=== PATIENT | male | born 1955 | race African-American/Black ===

== ENCOUNTER 2016-12-26 09:48 | Inpatient (IN) | payer OTHER ==
--- NOTE | 2016-12-26 15:21 | HP ---
CIWA Score - CIWA Score Nausea/Vomitin-No Nausea/No Vomiting Muscle Tremors: 4-Moderate,w/Arms Extend Anxiety: 3 Agitation: 4-Moderately Restless Paroxysmal Sweats: 3 Orientation: 0-Oriented Tacttile Disturbances: 0-None Auditory Disturbances: 0-None Visual Disturbances: 0-None Headache: 1-Very Mild CIWA-Ar Total Score: 15 Admission ROS [facility] - HPI Chief Complaint: I am here for detox. Allergies/Adverse Reactions: Allergies Allergy/AdvReac Type Severity Reaction Status Date / Time No Known Allergies Allergy Verified 12/26/16 14:49 History of Present Illness: pt is a 61yr old male with a history of alcohol and cocaine dependence seeking detox for treatment. Exam Limitations: No Limitations - Ebola screening Have you traveled outside of the country in the last 21 days: No Have you had contact with anyone from an Ebola affected area: No Have you been sick,other than usual withdrawal symptoms: No Do you have a fever: No - Review of Systems Constitutional: Chills, Diaphoresis, Loss of Appetite, Night Sweats, Changes in sleep, Weight Stable, Unexplained wgt Loss EENT: reports: Blurred Vision (pt has glucoma both eyes.) Respiratory: reports: No Symptoms reported Cardiac: reports: No Symptoms Reported GI: reports: Poor Appetite, Poor Fluid Intake : reports: No Symptoms Reported Musculoskeletal: reports: No Symptoms Reported Integumentary: reports: Flushing, Sweating Neuro: reports: Seizure, Tingling, Tremors Endocrine: reports: Excessive Sweating, Flushing, Intolerance to Cold, Intolerance to Heat Hematology: reports: No Symptoms Reported Psychiatric: reports: Judgement Intact, Mood/Affect Appropiate, Orientated x3, Agitated, Anxious Other Systems: Reviewed and Negative Patient History - Patient Medical History Hx Anemia: No Hx Asthma: No Hx Chronic Obstructive Pulmonary Disease (COPD): No Hx Cardiac Disorders: No Hx Hypertension: Yes Hx Hypercholesterolemia: No Hx Seizures: Yes (alcohol related-last episode was 11 mos. ago) Hx Dementia: No Hx Diabetes: No Hx Gastrointestinal Disorders: Yes (acid reflux) Hx Genitourinary Disorders: No Hx Sexually Transmitted Disorders: No Hx Renal Disease (ESRD): No Hx Thyroid Disease: No Hx Human Immunodeficiency Virus (HIV): No (NEGATIVE HX) Hx Hepatitis C: No Hx Depression: Yes Hx Suicide Attempt: No (denies) Hx Bipolar Disorder: No Hx Schizophrenia: No - Patient Surgical History Past Surgical History: Yes Hx Neurologic Surgery: No Hx Cataract Extraction: No Hx Cardiac Surgery: No Hx Lung Surgery: No Hx Breast Surgery: No Hx Breast Biopsy: No Hx Abdominal Surgery: No Hx Appendectomy: No Hx Cholecystectomy: No Hx Genitourinary Surgery: Yes (R nephrectomy sx for a mass in 2009) Hx Section: No Hx Orthopedic Surgery: No Anesthesia Reaction: No - PPD History Previous Implant?: Yes Documented Results: Positive w/o proof Implanted On Prior R Admission?: No PPD to be Administered?: No - Reproductive History Patient is a Female of Child Bearing Age (11 -55 yrs old): No - Smoking Cessation Smoking history: Current every day smoker Have you smoked in the past 12 months: Yes Aproximately how many cigarettes per day: 20 Hx Chewing Tobacco Use: No Initiated information on smoking cessation: Yes 'Breaking Loose' booklet given: 12/26/16 - Substance & Tx. History Hx Alcohol Use: Yes Hx Substance Use: Yes Substance Use Type: Alcohol, Cocaine Hx Substance Use Treatment: Yes (last detox 2ys ago [facility]) - Substances Abused Cocaine Route: Inhalation Frequency: Daily Amount used: $40-50 Age of first use: 23 Date of Last Use: 12/25/16 Alcohol-vodka/beer Route: Oral Frequency: Daily Amount used: 2 pts./3-6 pks. Age of first use: 18 Date of Last Use: 12/26/16 Family Disease History - Family Disease History Family Disease History: Other: Father (?-), Mother (HTN-) Admission Physical Exam S - Vital Signs Vital Signs: Vital Signs - 24 hr 12/26/16 12:11 Temperature 97.6 F Pulse Rate 88 Respiratory 20 Rate Blood Pressure 144/97 - Physical General Appearance: Yes: Appropriately Dressed, Moderate Distress, Tremorous, Irritable, Sweating, Anxious HEENTM: Yes: Hearing grossly Normal, Normal Voice Respiratory: Yes: Lungs Clear, Normal Breath Sounds, No Respiratory Distress Neck: Yes: No masses,lesions,Nodules Breast: Yes: Within Normal Limits Cardiology: Yes: Regular Rhythm, Regular Rate, S1, S2 Abdominal: Yes: Normal Bowel Sounds, Non Tender, Soft Genitourinary: Yes: Within Normal Limits Back: Yes: Normal Inspection Musculoskeletal: Yes: full range of Motion Extremities: Yes: Normal Capillary Refill, Normal Inspection, Tremors Neurological: Yes: Fully Oriented, Alert, Normal Response Integumentary: Yes: Normal Color Lymphatic: Yes: Within Normal Limits - Diagnostic (1) Cocaine dependence Current Visit: Yes Status: Chronic Qualifiers: Substance use status: uncomplicated Qualified Code(s): F14.20 - Cocaine dependence, uncomplicated; F14.20 - Cocaine dependence, uncomplicated; F14.20 - Cocaine dependence, uncomplicated (2) GERD (gastroesophageal reflux disease) Current Visit: Yes Status: Chronic Qualifiers: Esophagitis presence: without esophagitis Qualified Code(s): K21.9 - Gastro-esophageal reflux disease without esophagitis; K21.9 - Gastro- esophageal reflux disease without esophagitis; K21.9 - Gastro-esophageal reflux disease without esophagitis (3) Glaucoma Current Visit: Yes Status: Chronic Qualifiers: Glaucoma type: unspecified Laterality: bilateral Qualified Code( s): H40.9 - Unspecified glaucoma; H40.9 - Unspecified glaucoma (4) Nicotine dependence Current Visit: Yes Status: Chronic Qualifiers: Nicotine product type: cigarettes Substance use status: uncomplicated Qualified Code(s): F17.210 - Nicotine dependence, cigarettes, uncomplicated; F17.210 - Nicotine dependence, cigarettes, uncomplicated (5) Seizure disorder Current Visit: No Status: Chronic (6) Alcohol dependence with uncomplicated withdrawal Current Visit: Yes Status: Chronic Cleared for Admission [facility] - Detox or Rehab [facility] Level of Care: Medically Managed Detox Regimen/Protocol: Librium [facility] Breath Alcohol Content Breath Alcohol Content: 0.050 Urine Drug Screen - Results Drug Screen Negative: No Urine Drug Screen Results: SCOTT-Cocaine, BZO-Benzodiazepines
[2016-12-26] MEDS ORDERED: MAGNESIUM CITRATE 300 ML BOTTLE PO PRN (15:50)
[2016-12-26] MEDS ORDERED: hydrOXYzine PAMOATE 50 MG CAPSULE (FP) PO PRN (15:50)
[2016-12-26] MEDS ORDERED: ACETAMINOPHEN 325 MG TABLET (FP) PO PRN (15:50)
[2016-12-26] MEDS ORDERED: MAG HYDROX/AL HYDROX/SIMETH 30 ML UNIT-DOSE CUP PO PRN (15:50)
[2016-12-26] MEDS ORDERED: MENTHOL/PHENOL 1 EACH UD MM PRN (15:50)
[2016-12-26] MEDS ORDERED: IBUPROFEN 400 MG TABLET (FP) PO PRN (15:50)
[2016-12-26] MEDS ORDERED: diphenhydrAMINE HCL 50 MG CAPSULE PO PRN (15:50)
[2016-12-26] MEDS ORDERED: guaiFENesin/D-METHORPHAN HB 10 ML UNIT-DOSE CUPS PO PRN (15:50)
[2016-12-26] MEDS ORDERED: LOPERAMIDE HCL 2 MG CAPSULE PO PRN (15:50)
[2016-12-26] MEDS ORDERED: chlordiazePOXIDE HCL 25 MG CAPSULE PO PRN (15:50)
[2016-12-26] MEDS ORDERED: MAGNESIUM HYDROX 2400MG/30ML ORAL SUSPENSION 30 ML CUP PO PRN (15:50)
[2016-12-26] MEDS ORDERED: P-EPHED 60MG/TRIPROLIDI 2.5MG TABLET PO PRN (15:50)
[2016-12-26] MEDS ORDERED: chlordiazePOXIDE HCL 25 MG CAPSULE PO ONE (16:55)
[2016-12-26] MEDS: chlordiazePOXIDE HCL 25 MG CAPSULE PO SCH ×2 (19:08→22:41)
[2016-12-26] MEDS: THIAMINE HCL 100 MG TABLET (FP) PO SCH (22:41)
[2016-12-27 01:57] LABS: URINE APPEARANCE CLEAR; URINE BILIRUBIN NEGATIVE (NEGATIVE); URINE BLOOD NEGATIVE (NEGATIVE); URINE COLOR AMBER; URINE GLUCOSE (UA) NEGATIVE (NEGATIVE); URINE KETONE NEGATIVE (NEGATIVE); URINE NITRITE NEGATIVE (NEGATIVE)
[2016-12-27 02:02] LABS: URINE PROTEIN 2+ (NEGATIVE)
[2016-12-27 02:22] LABS: URINE MUCUS RARE; URINE RBC 1 /hpf (0-3); URINE WBC 4 /hpf (3-5)
[2016-12-27] MEDS: chlordiazePOXIDE HCL 25 MG CAPSULE PO SCH ×4 (06:25→22:42)
--- NOTE | 2016-12-27 09:27 | EKG ---
Test Reason : Blood Pressure : / mmHG Vent. Rate : 084 BPM Atrial Rate : 084 BPM P-R Int : 150 ms QRS Dur : 090 ms QT Int : 392 ms P-R-T Axes : 066 094 062 degrees QTc Int : 463 ms NORMAL SINUS RHYTHM RIGHTWARD AXIS POOR R WAVE PROGRESSION NO PREVIOUS ECGS AVAILABLE Confirmed by WALI ROPER MD ([id number]) on 12/27/2016 9:26:41 AM Referred By: Confirmed By:WALI ROPER MD
[2016-12-27 09:45] LABS: MCH 31.7 pg (25.7-33.7); MCHC 32.5 g/dl (32.0-35.9); MEAN CELL VOLUME 97.5 fl (80-96); MEAN PLT VOLUME 7.2 fl (7.5-11.1); PLATELET COUNT 201 K/MM3 (134-434); WHITE BLOOD COUNT 4.9 K/mm3 (4.0-10.0)
[2016-12-27 09:52] LABS: ALBUMIN 3.1 g/dl (3.4-5.0); ALK PHOS 75 U/L (45-117); ANION GAP 8 (8-16); BILIRUBIN,TOTAL 0.5 mg/dL (0.2-1.0); CALCIUM 8.6 mg/dL (8.5-10.1); CO2 27 mmol/L (21-32); CREATININE 1.1 mg/dL (0.7-1.3); GLUCOSE,RANDOM 145 mg/dL (74-106); SGOT/AST 72 U/L (15-37); SGPT/ALT 57 U/L (12-78); TOT PROT 5.7 g/dl (6.4-8.2)
[2016-12-27] MEDS: NICOTINE 21 MG/24 HOURS TOPICAL PATCH TD SCH (10:23)
[2016-12-27] MEDS: PHENYTOIN NA EXTENDED 100 MG CAPSULE (FP) PO SCH (10:23)
[2016-12-27] MEDS: PRENATAL VITAMINS W/ FOLIC ACID TABLET (FP) PO SCH (10:23)
[2016-12-27 10:45] LABS: URINE LEUK ESTERASE Negative (NEGATIVE)
--- NOTE | 2016-12-27 11:10 | PN ---
[facility] CIWA - CIWA Score Nausea/Vomitin-No Nausea/No Vomiting Muscle Tremors: 4-Moderate,w/Arms Extend Anxiety: 4-Mod. Anxious/Guarded Agitation: 4-Moderately Restless Paroxysmal Sweats: 1-Minimal Palms Moist Orientation: 0-Oriented Tacttile Disturbances: 3-Moderate Itch/Numb/Burn Auditory Disturbances: 0-None Visual Disturbances: 0-None Headache: 0-None Present CIWA-Ar Total Score: 16 S Progress Note (SOAP) Subjective: ANXIETY,SWEATS,CHILLS,FATIGUE,MUSCLE ACHES. Objective: 12/27/16 11:09 Vital Signs Temperature 97.8 F 12/27/16 10: Pulse Rate 95 H 12/27/16 10:13 Respiratory Rate 18 12/27/16 10:13 Blood Pressure 132/90 12/27/16 10: O2 Sat by Pulse Oximetry (%) Laboratory Last Values WBC 4.9 K/mm3 (4.0-10.0) D 12/27/16 07:00 RBC 3.82 M/mm3 (4.00-5.60) L 12/27/16 07:00 Hgb 12.1 GM/dL (11.7-16.9) 12/27/16 07:00 Hct 37.2 % (35.4-49) 12/27/16 07:00 MCV 97.5 fl (80-96) H 12/27/16 07:00 MCH 31.7 pg (25.7-33.7) 12/27/16 07:00 MCHC 32.5 g/dl (32.0-35.9) 12/27/16 07:00 RDW 13.0 % (11.9-15.9) 12/27/16 07:00 Plt Count 201 K/MM3 (134-434) 12/27/16 07:00 MPV 7.2 fl (7.5-11.1) L 12/27/16 07:00 Sodium 143 mmol/L (136-145) 12/27/16 07:00 Potassium 3.6 mmol/L (3.5-5.1) 12/27/16 07:00 Chloride 108 mmol/L (98-107) H 12/27/16 07:00 Carbon Dioxide 27 mmol/L (21-32) 12/27/16 07:00 Anion Gap 8 (8-16) 12/27/16 07:00 BUN 16 mg/dL (7-18) 12/27/16 07:00 Creatinine 1.1 mg/dL (0.7-1.3) 12/27/16 07:00 Creat Clearance w eGFR > 60 (>60) 12/27/16 07:00 Random Glucose 145 mg/dL (74-106) H D 12/27/16 07:00 Calcium 8.6 mg/dL (8.5-10.1) 12/27/16 07:00 Total Bilirubin 0.5 mg/dL (0.2-1.0) D 12/27/16 07:00 AST 72 U/L (15-37) H D 12/27/16 07:00 ALT 57 U/L (12-78) D 12/27/16 07:00 Alkaline Phosphatase 75 U/L (45-117) D 12/27/16 07:00 Total Protein 5.7 g/dl (6.4-8.2) L D 12/27/16 07:00 Albumin 3.1 g/dl (3.4-5.0) L D 12/27/16 07:00 Urine Color [place]or[place] 12/26/16 20:45 Urine Appearance Clear 12/26/16 20:45 Urine pH 5.0 (5.0-8.0) 12/26/16 20:45 Ur Specific [place] 1.025 (1.005-1.025) 12/26/16 20:45 Urine Protein 2+ (NEGATIVE) H 12/26/16 20:45 Urine Glucose (UA) Negative (NEGATIVE) 12/26/16 20:45 Urine Ketones Negative (NEGATIVE) 12/26/16 20:45 Urine Blood Negative (NEGATIVE) 12/26/16 20:45 Urine Nitrite Negative (NEGATIVE) 12/26/16 20:45 Urine Bilirubin Negative (NEGATIVE) 12/26/16 20:45 Urine Urobilinogen 2.0 mg/dL (0.2-1.0) 12/26/16 20:45 Ur Leukocyte Esterase Negative (NEGATIVE) 12/26/16 20:45 Urine RBC 1 /hpf (0-3) 12/26/16 20:45 Urine WBC 4 /hpf (3-5) 12/26/16 20:45 Ur Epithelial Cells Rare /hpf (FEW) 12/26/16 20:45 Urine Mucus Rare 12/26/16 20:45 Assessment: 12/27/16 11:10 WITHDRAWAL SX Plan: CONTINUE DETOX
--- NOTE | 2016-12-27 14:20 | CONSULT ---
[facility] Psychiatric Consult - Data Date of interview: 12/27/16 Admission source: [facility] Identifying data: Readmission to [facility] for this 61 y/o AA male seeking detox treatment on for alcohol and cocaine dependence.Patient is single without children,homeless,unemployed and deprived of financial assistance. Substance Abuse History: Discussed in session.report confirmed. Smoking Cessation. Smoking history: Current every day smoker. Have you smoked in the past 12 months: Yes. Aproximately how many cigarettes per day: 20. Hx Chewing Tobacco Use: No. Initiated information on smoking cessation: Yes. 'Breaking Loose' booklet given: 12/26/16. - Substance & Tx. History. Hx Alcohol Use: Yes. Hx Substance Use: Yes. Substance Use Type: Alcohol, Cocaine. Hx Substance Use Treatment: Yes (last detox 2ys ago [facility]). - Substances Abused. Cocaine. Route: Inhalation. Frequency: Daily. Amount used: $40- 50. Age of first use: 23. Date of Last Use: 12/25/16. Alcohol-vodka/beer. Route: Oral. Frequency: Daily. Amount used: 2 pts./3-6 pks. Age of first use: 18. Date of Last Use: 12/26/16 Medical History: GERD,withdrawal-related seizures in the past,hypertension, glaucoma (both eyes) and a history of right nephrectomy (tumor) in 2016. Psychiatric History: Poor historian.Mr Hernandez does admit to the diagnosis of Bipolar Disorder." I used to be on medications.I stopped a while back." No reported history of hospitalizations.Denies history of suicide attempts. Physical/Sexual Abuse/Trauma History: Denies. Additional Comment: Urine Drug Screen Results: SCOTT-Cocaine, BZO- Benzodiazepines.Noted. Mental Status Exam - Mental Status Exam Alert and Oriented to: Time, Place, Person Cognitive Function: Good Patient Appearance: Well Groomed Mood: Hopeful, Euthymic Affect: Normal Range Patient Behavior: Fatigued, Cooperative Speech Pattern: Clear Voice Loudness: Normal Thought Process: Goal Oriented Thought Disorder: Not Present Hallucinations: Denies Suicidal Ideation: Denies Homicidal Ideation: Denies Insight/Judgement: Poor Sleep: Poorly, Difficulty falling asleep (wants ambien) Appetite: Fair Muscle strength/Tone: Normal Gait/Station: Normal Psychiatric Findings - Problem List (Sandy 1, 2,3) (1) Alcohol dependence with uncomplicated withdrawal Current Visit: Yes Status: Acute (2) Cocaine dependence Current Visit: Yes Status: Acute Qualifiers: Substance use status: uncomplicated Qualified Code(s): F14.20 - Cocaine dependence, uncomplicated; F14.20 - Cocaine dependence, uncomplicated; F14.20 - Cocaine dependence, uncomplicated (3) Nicotine dependence Current Visit: Yes Status: Acute Qualifiers: Nicotine product type: cigarettes Substance use status: in withdrawal Qualified Code(s): F17.213 - Nicotine dependence, cigarettes, with withdrawal; F17.213 - Nicotine dependence, cigarettes, with withdrawal (4) GERD (gastroesophageal reflux disease) Current Visit: Yes Status: Chronic Qualifiers: Esophagitis presence: without esophagitis Qualified Code(s): K21.9 - Gastro-esophageal reflux disease without esophagitis; K21.9 - Gastro- esophageal reflux disease without esophagitis; K21.9 - Gastro-esophageal reflux disease without esophagitis (5) Glaucoma Current Visit: Yes Status: Chronic Qualifiers: Glaucoma type: unspecified Laterality: bilateral Qualified Code( s): H40.9 - Unspecified glaucoma; H40.9 - Unspecified glaucoma (6) H/O unilateral nephrectomy Current Visit: Yes Status: Chronic (7) Insomnia Current Visit: Yes Status: Acute - Initial Treatment Plan Initial Treatment Plan: Psychoeducation.Detoxification.Ambien 5 mg po hs prn.Patient is made aware of potential for parasomnias,drowsiness and falls.he agrees with this careplan.Observation.
[2016-12-27] MEDS ORDERED: ZOLPIDEM TARTRATE 5 MG TABLET PO PRN (18:25)
[2016-12-27] MEDS: THIAMINE HCL 100 MG TABLET (FP) PO SCH (22:42)
[2016-12-28] MEDS: chlordiazePOXIDE HCL 25 MG CAPSULE PO SCH ×2 (06:16→10:22)
[2016-12-28] MEDS: NICOTINE 21 MG/24 HOURS TOPICAL PATCH TD SCH (10:22)
[2016-12-28] MEDS: PHENYTOIN NA EXTENDED 100 MG CAPSULE (FP) PO SCH (10:22)
[2016-12-28] MEDS: PRENATAL VITAMINS W/ FOLIC ACID TABLET (FP) PO SCH (10:22)
[2016-12-28] MEDS ORDERED: ONDANSETRON *ODT* 4 MG TABLET SL PRN (11:38)
[2016-12-28 13:55] VITALS: BP 116/76; PULSE 91; TEMP 97.3
--- NOTE | 2016-12-28 14:46 | DS ---
[facility] Detox Discharge Summary Admission Date: 12/26/16 Discharge Date: 12/28/16 - History Present History: Alcohol Dependence, Cocaine Dependence Additional Comments: DESPITE ENCOURAGEMENT FROM MEDICAL STAFF, PT. DOES NOT WISH TO STAY TO COMPLETE DETOX REGIMEN. RISKS OF LEAVING DETOX UNIT PRIOR TO COMPLETION OF DETOX PROTOCOL DISCUSSED WITH PATIENT. PATIENT ADVISED TO GO IMMEDIATELY TO NEAREST ER SHOULD ANY INTOLERABLE DETOX SYMPTOMS DEVELOP AT ANY TIME. PATIENT ADVISED TO FOLLOW-UP FOR MEDICAL ASSESSMENT / CARE AT [facility] ( WHERE HE HAS RECEIVED MEDICAL TREATMENT IN THE PAST). PATIENT REFUSED OFFER OF DISCHARGE MEDICATIONS WHEN LEAVING UNIT. PATIENT LEFT DETOX UNIT IN STABLE MEDICAL CONDITION. Pertinent Past History: Glaucoma, HTN, Nicotine Dependence, History of seizures, Depression, GERD. - Physical Exam Results Vital Signs: Vital Signs Temperature 97.3 F L 12/28/16 13:54 Pulse Rate 91 H 12/28/16 13:54 Respiratory Rate 20 12/28/16 13:54 Blood Pressure 116/76 12/28/16 13:54 O2 Sat by Pulse Oximetry (%) Pertinent Admission Physical Exam Findings: WITHDRAWAL SYMPTOMS. Laboratory Tests 12/26/16 12/27/16 12/27/16 20:45 07:00 07:00 WBC 4.9 D RBC 3.82 L Hgb 12.1 Hct 37.2 MCV 97.5 H MCH 31.7 MCHC 32.5 RDW 13.0 Plt Count 201 MPV 7.2 L Sodium 143 Potassium 3.6 Chloride 108 H Carbon Dioxide 27 Anion Gap 8 BUN 16 Creatinine 1.1 Creat Clearance w eGFR > 60 Random Glucose 145 H D Calcium 8.6 Total Bilirubin 0.5 D AST 72 H D ALT 57 D Alkaline Phosphatase 75 D Total Protein 5.7 L D Albumin 3.1 L D Urine Color Deloris Urine Appearance Clear Urine pH 5.0 Ur Specific [place] 1.025 Urine Protein 2+ H Urine Glucose (UA) Negative Urine Ketones Negative Urine Blood Negative Urine Nitrite Negative Urine Bilirubin Negative Urine Urobilinogen 2.0 Ur Leukocyte Esterase Negative Urine RBC 1 Urine WBC 4 Ur Epithelial Cells Rare Urine Mucus Rare RPR Titer 12/27/16 07:00 WBC RBC Hgb Hct MCV MCH MCHC RDW Plt Count MPV Sodium Potassium Chloride Carbon Dioxide Anion Gap BUN Creatinine Creat Clearance w eGFR Random Glucose Calcium Total Bilirubin AST ALT Alkaline Phosphatase Total Protein Albumin Urine Color Urine Appearance Urine pH Ur Specific [place] Urine Protein Urine Glucose (UA) Urine Ketones Urine Blood Urine Nitrite Urine Bilirubin Urine Urobilinogen Ur Leukocyte Esterase Urine RBC Urine WBC Ur Epithelial Cells Urine Mucus RPR Titer Nonreactive LABS NOTED. - Treatment Hospital Course: Detoxed Safely - Diagnosis (1) Alcohol dependence with uncomplicated withdrawal Current Visit: Yes Status: Acute (2) Cocaine dependence Current Visit: Yes Status: Acute Qualifiers: Substance use status: uncomplicated Qualified Code(s): F14.20 - Cocaine dependence, uncomplicated; F14.20 - Cocaine dependence, uncomplicated; F14.20 - Cocaine dependence, uncomplicated (3) Nicotine dependence Current Visit: Yes Status: Chronic Qualifiers: Nicotine product type: cigarettes Substance use status: in withdrawal Qualified Code(s): F17.213 - Nicotine dependence, cigarettes, with withdrawal; F17.213 - Nicotine dependence, cigarettes, with withdrawal (4) Glaucoma Current Visit: Yes Status: Chronic Qualifiers: Glaucoma type: unspecified Laterality: bilateral Qualified Code( s): H40.9 - Unspecified glaucoma; H40.9 - Unspecified glaucoma (5) Seizure disorder Current Visit: Yes Status: Chronic (6) GERD (gastroesophageal reflux disease) Current Visit: Yes Status: Chronic Qualifiers: Esophagitis presence: without esophagitis Qualified Code(s): K21.9 - Gastro-esophageal reflux disease without esophagitis; K21.9 - Gastro- esophageal reflux disease without esophagitis; K21.9 - Gastro-esophageal reflux disease without esophagitis - AMA Did Patient Leave Against Medical Advice: Yes (PATIENT DID NOT WISH TO STAY TO COMPLETE DETOX REGIMEN.)
[2016-12-28] MEDS ORDERED: chlordiazePOXIDE 5 MG CAPSULE PO SCH (17:00)
[2016-12-29] MEDS ORDERED: chlordiazePOXIDE HCL 10 MG CAPSULE PO SCH (17:00)
== END 2016-12-28 15:23 | disposition left against medical advice (07) | DRG 770 ==
LOC: YASAS 09:48 → Y3N 16:46
PROVIDERS: ADMIT Internal Medicine; ATTEND Internal Medicine
PROC: HZ2ZZZZ Detoxification Services for Substance Abuse Treatment (ICD-10-PCS; principal; 2016-12-26)
DX: F10.230 Alcohol dependence with withdrawal, uncomplicated (principal); F14.20 Cocaine dependence, uncomplicated; F17.210 Nicotine dependence, cigarettes, uncomplicated; H40.9 Unspecified glaucoma; K21.9 Gastro-esophageal reflux disease without esophagitis; G47.00 Insomnia, unspecified; Z86.69 Personal history of other diseases of the nervous system and sense organs; Z90.5 Acquired absence of kidney
CPT/HCPCS: 36415; 71020-TC; 80053; 81003; 81015; 85027; 86593; 93005; 93010

== ENCOUNTER 2018-10-01 20:45 | Inpatient (IN) | payer OTHER ==
--- NOTE | 2018-10-01 21:52 | HP ---
CIWA Score Nausea/Vomitin Muscle Tremors: 3 Anxiety: 2 Agitation: 3 Paroxysmal Sweats: 1-Minimal Palms Moist Orientation: 1-Uncertain about Date Tacttile Disturbances: 0-None Auditory Disturbances: 0-None Visual Disturbances: 0-None Headache: 1-Very Mild CIWA-Ar Total Score: 14 - Admission Criteria [facility] Guidelines: Admission for Medically Managed Detox: Requires at least one of the followin. CIWA greater than 12 2. Seizures within the past 24 hours 3. Delirium tremens within the past 24 hours 4. Hallucinations within the past 24 hours 5. Acute intervention needed for co occurring medical disorder 6. Acute intervention needed for co occurring psychiatric disorder 7. Severe withdrawal that cannot be handled at a lower level of care (continued vomiting, continued diarrhea, abnormal vital signs) requiring intravenous medication and/or fluids 8. Patient presents the following: CIWA greater than 12 Admission Criteria Met: Admission criteria met Admission ROS [facility] Chief Complaint: cannot relate Allergies/Adverse Reactions: Allergies Allergy/AdvReac Type Severity Reaction Status Date / Time No Known Allergies Allergy Verified 10/01/18 21:20 History of Present Illness: daniel says he has been drinking since his teens and has no significant period of abstience and drinks 2 liters vodka daily consistently last rehab was 2 y ago - Ebola screening Have you traveled outside of the country in the last 21 days: No (N) Have you had contact with anyone from an Ebola affected area: No Do you have a fever: No - Review of Systems Constitutional: No Symptoms Reported EENT: reports: No Symptoms Reported Respiratory: reports: No Symptoms reported Cardiac: reports: No Symptoms Reported GI: reports: Abdominal cramping : reports: No Symptoms Reported Musculoskeletal: reports: No Symptoms Reported Integumentary: reports: No Symptoms Reported Neuro: reports: Headache, Unsteady Gait Endocrine: reports: No Symptoms Reported Hematology: reports: No Symptoms Reported Psychiatric: reports: Disorientated, other (inebriated) Patient History - Patient Medical History Hx Anemia: No Hx Asthma: No Hx Chronic Obstructive Pulmonary Disease (COPD): No Hx Cardiac Disorders: No Hx Hypertension: Yes Hx Hypercholesterolemia: No Hx Seizures: Yes (alcohol related-last episode was 11 mos. ago) Hx Dementia: No Hx Diabetes: No Hx Gastrointestinal Disorders: Yes (acid reflux) Hx Genitourinary Disorders: No Hx Sexually Transmitted Disorders: No Hx Renal Disease (ESRD): No Hx Thyroid Disease: No Hx Human Immunodeficiency Virus (HIV): No (NEGATIVE HX) Hx Hepatitis C: No Hx Depression: Yes Hx Suicide Attempt: No (denies) Hx Bipolar Disorder: No Hx Schizophrenia: No - Patient Surgical History Past Surgical History: Yes Hx Neurologic Surgery: No Hx Cataract Extraction: No Hx Cardiac Surgery: No Hx Lung Surgery: No Hx Breast Surgery: No Hx Breast Biopsy: No Hx Abdominal Surgery: No Hx Appendectomy: No Hx Cholecystectomy: No Hx Genitourinary Surgery: Yes (R nephrectomy sx for a mass in 2009) Hx Section: No Hx Orthopedic Surgery: No Anesthesia Reaction: No - Smoking Cessation Smoking history: Current every day smoker Have you smoked in the past 12 months: Yes Aproximately how many cigarettes per day: 20 Hx Chewing Tobacco Use: No Initiated information on smoking cessation: Yes 'Breaking Loose' booklet given: 10/01/18 - Substances abused Alcohol Substance route: Oral Frequency: Daily Amount used: 3pints of vodka daily Age of first use: 22 Date of last use: 10/01/18 Family Disease History - Family Disease History Family Disease History: Other: Father (?-), Mother (HTN-) Admission Physical Exam [facility] - Vital Signs Vital Signs: Vital Signs - 24 hr 10/01/18 21:38 Pulse Rate 77 Respiratory 20 Rate Blood Pressure 113/74 - Physical General Appearance: Yes: Disheveled, Alcohol on Breath, Thin, Sweating HEENTM: Yes: EOMI, Normocephalic, Other (scleral injection) Respiratory: Yes: Within Normal Limits, Chest Non-Tender, Lungs Clear, Normal Breath Sounds Neck: Yes: Within Normal Limits Breast: Yes: Within Normal Limits Cardiology: Yes: Within Normal Limits, Regular Rhythm, Regular Rate Abdominal: Yes: Within Normal Limits, Normal Bowel Sounds, Non Tender Genitourinary: Yes: Within Normal Limits Back: Yes: Within Normal Limits Musculoskeletal: Yes: Within Normal Limits Extremities: Yes: Normal Inspection Neurological: Yes: Other (inebriated) Integumentary: Yes: Within Normal Limits - Diagnostic (1) Alcohol dependence with uncomplicated withdrawal Current Visit: Yes Status: Acute (2) Cocaine dependence Current Visit: No Status: Acute Qualifiers: (3) Seizure disorder Current Visit: No Status: Chronic Cleared for Admission [facility] - Detox or Rehab [facility] Level of Care: Medically Supervised (admit to detox, hold librium taper for change in ms) Claeared for Rehab Admission: No Breathalyzer - Breathalyzer Breathalyzer: 0.213 Urine Drug Screen - Test Device Lot number: [id number] Expiration date: 07/14/20 - Control Is test valid?: Yes - Results Drug screen NEGATIVE: No Urine drug screen results: SCOTT-Cocaine, BZO-Benzodiazepines Inpatient Rehab Admission - Rehab Decision to Admit Inpatient rehab admission?: No
[2018-10-01] MEDS ORDERED: hydrOXYzine HCL 25 MG TABLET (FP) PO PRN (21:53)
[2018-10-01] MEDS ORDERED: MENTHOL/PHENOL 1 EACH UD MM PRN (21:53)
[2018-10-01] MEDS ORDERED: METHOCARBAMOL 500 MG TABLET PO PRN (21:53)
[2018-10-01] MEDS ORDERED: MAG HYDROX/AL HYDROX/SIMETH 30 ML UNIT-DOSE CUP PO PRN (21:53)
[2018-10-01] MEDS ORDERED: ACETAMINOPHEN 325 MG TABLET (FP) PO PRN (21:53)
[2018-10-01] MEDS ORDERED: BISMUTH SUBSALICYLATE 524 MG/30 ML UD PO PRN (21:53)
[2018-10-01] MEDS ORDERED: MELATONIN 5 MG TABLETS PO PRN (21:53)
[2018-10-01] MEDS ORDERED: MAGNESIUM HYDROX 2400MG/30ML ORAL SUSPENSION 30 ML CUP PO PRN (21:53)
[2018-10-01] MEDS ORDERED: IBUPROFEN 400 MG TABLET (FP) PO PRN (21:53)
[2018-10-01] MEDS ORDERED: MAGNESIUM CITRATE 300 ML BOTTLE PO PRN (21:53)
[2018-10-01 21:57] VITALS: BMI 20.3
[2018-10-01] MEDS: THIAMINE HCL 100 MG TABLET (FP) PO SCH (23:33)
[2018-10-01] MEDS: NICOTINE 14 MG/24 HOURS TOPICAL PATCH TD SCH (23:33)
[2018-10-02] MEDS ORDERED: chlordiazePOXIDE HCL 25 MG CAPSULE PO PRN (05:00)
[2018-10-02] MEDS: chlordiazePOXIDE HCL 25 MG CAPSULE PO SCH ×4 (06:35→22:45)
[2018-10-02] MEDS: NICOTINE 14 MG/24 HOURS TOPICAL PATCH TD SCH (10:10)
[2018-10-02] MEDS: PRENATAL VITAMINS W/ FOLIC ACID TABLET (FP) PO SCH (10:10)
[2018-10-02 12:24] LABS: HEMATOCRIT 34.1 % (35.4-49); HEMOGLOBIN 11.3 GM/dL (11.7-16.9); MCH 32.4 pg (25.7-33.7); MEAN CELL VOLUME 98.2 fl (80-96); MEAN PLT VOLUME 7.3 fl (7.5-11.1); PLATELET COUNT 320 K/MM3 (134-434); RBC 3.48 M/mm3 (4.00-5.60); RDW 13.6 % (11.9-15.9)
[2018-10-02 12:27] LABS: ALBUMIN 3.2 g/dl (3.4-5.0); BILIRUBIN,TOTAL 0.4 mg/dL (0.2-1); CALCIUM 8.5 mg/dL (8.5-10.1); CREATININE 0.9 mg/dL (0.55-1.3); POTASSIUM 4.2 mmol/L (3.5-5.1); TOT PROT 6.3 g/dl (6.4-8.2)
--- NOTE | 2018-10-02 13:58 | PN ---
[facility] CIWA - CIWA Score Nausea/Vomitin Muscle Tremors: 2 Anxiety: 2 Agitation: 1-Slight > Activity Paroxysmal Sweats: 2 Orientation: 0-Oriented Tacttile Disturbances: 1-Very Mild Itch/Numbness Auditory Disturbances: 0-None Visual Disturbances: 0-None Headache: 0-None Present CIWA-Ar Total Score: 10 [facility] Progress Note (SOAP) Subjective: interrupted sleep sweats , shakes, decreased appetite Objective: 10/02/18 13:54 Vital Signs Temperature 98.3 F 10/02/18 13:34 Pulse Rate 71 10/02/18 13:34 Respiratory Rate 16 10/02/18 13:34 Blood Pressure 137/91 10/02/18 13:34 O2 Sat by Pulse Oximetry (%) Laboratory Tests 10/01/18 10/02/18 10/02/18 22:13 07:00 07:00 WBC 4.0 RBC 3.48 L Hgb 11.3 L Hct 34.1 L MCV 98.2 H MCH 32.4 MCHC 33.0 RDW 13.6 Plt Count 320 D MPV 7.3 L Sodium 145 Potassium 4.2 Chloride 115 H Carbon Dioxide 25 Anion Gap 5 L BUN 13.0 Creatinine 0.9 Est GFR (CKD-EPI)AfAm 106.46 Est GFR (CKD-EPI)NonAf 91.86 POC Glucometer 114 Random Glucose 85 Calcium 8.5 Total Bilirubin 0.4 AST 55 H ALT 36 Alkaline Phosphatase 95 Total Protein 6.3 L Albumin 3.2 L pt aox3 in nad lying in bed Assessment: 10/02/18 13:55 withdrawal sx;s Plan: cont. detox increase fluids [place] prn
[2018-10-02] MEDS: THIAMINE HCL 100 MG TABLET (FP) PO SCH (22:47)
[2018-10-03] MEDS ORDERED: chlordiazePOXIDE HCL 10 MG CAPSULE PO PRN
[2018-10-03] MEDS: chlordiazePOXIDE HCL 25 MG CAPSULE PO SCH ×4 (05:19→22:47)
[2018-10-03] MEDS: NICOTINE 14 MG/24 HOURS TOPICAL PATCH TD SCH (10:40)
[2018-10-03] MEDS: PRENATAL VITAMINS W/ FOLIC ACID TABLET (FP) PO SCH (10:40)
[2018-10-03] MEDS: ACETAMINOPHEN 325 MG TABLET (FP) PO PRN ×2 (10:41→18:06)
--- NOTE | 2018-10-03 18:10 | PN ---
S CIWA - CIWA Score Nausea/Vomitin (Diarrhea.) Muscle Tremors: None Anxiety: 2 Agitation: 1-Slight > Activity Paroxysmal Sweats: No Perspiration Orientation: 2-Disoriented Date<2 days Tacttile Disturbances: 1-Very Mild Itch/Numbness Auditory Disturbances: 1-Very Mild Visual Disturbances: 0-None Headache: 0-None Present CIWA-Ar Total Score: 9 S Progress Note (SOAP) Subjective: Diarrhea, Stomach cramping, Body Aches. Objective: PATIENT A & O X 3, OBSERVED AMBULATING ON UNIT UNASSISTED. IN NO ACUTE DISTRESS. 10/03/18 18:09 Vital Signs Temperature 99.2 F 10/03/18 13:58 Pulse Rate 93 H 10/03/18 13:58 Respiratory Rate 20 10/03/18 13:58 Blood Pressure 140/92 10/03/18 13:58 O2 Sat by Pulse Oximetry (%) Laboratory Tests 10/01/18 10/02/18 10/02/18 22:13 07:00 07:00 WBC 4.0 RBC 3.48 L Hgb 11.3 L Hct 34.1 L MCV 98.2 H MCH 32.4 MCHC 33.0 RDW 13.6 Plt Count 320 D MPV 7.3 L Sodium 145 Potassium 4.2 Chloride 115 H Carbon Dioxide 25 Anion Gap 5 L BUN 13.0 Creatinine 0.9 Est GFR (CKD-EPI)AfAm 106.46 Est GFR (CKD-EPI)NonAf 91.86 POC Glucometer 114 Random Glucose 85 Calcium 8.5 Total Bilirubin 0.4 AST 55 H ALT 36 Alkaline Phosphatase 95 Total Protein 6.3 L Albumin 3.2 L RPR Titer 10/02/18 10/02/18 10/03/18 07:00 16:56 05:21 WBC RBC Hgb Hct MCV MCH MCHC RDW Plt Count MPV Sodium Potassium Chloride Carbon Dioxide Anion Gap BUN Creatinine Est GFR (CKD-EPI)AfAm Est GFR (CKD-EPI)NonAf POC Glucometer 119 108 Random Glucose Calcium Total Bilirubin AST ALT Alkaline Phosphatase Total Protein Albumin RPR Titer Nonreactive 10/03/18 11:59 WBC RBC Hgb Hct MCV MCH MCHC RDW Plt Count MPV Sodium Potassium Chloride Carbon Dioxide Anion Gap BUN Creatinine Est GFR (CKD-EPI)AfAm Est GFR (CKD-EPI)NonAf POC Glucometer 126 Random Glucose Calcium Total Bilirubin AST ALT Alkaline Phosphatase Total Protein Albumin RPR Titer LABS NOTED. RESULTS OF QFT /TB TEST PENDING. 10/03/18 18:10 Assessment: 10/03/18 18:09 WITHDRAWAL SYMPTOMS. ANEMIA. 10/03/18 18:11 Plan: CONTINUE DETOX. INCREASE DAILY PO WATER INTAKE. PRN PEPTO-BISMOL PO FOR DIARRHEA. PATIENT IS CURRENTLY RECEIVING DAILY MVI CONTAINING B VITAMINS AND IRON WHILE ADMITTED FOR DETOX.
[2018-10-03] MEDS: THIAMINE HCL 100 MG TABLET (FP) PO SCH (22:47)
[2018-10-04] MEDS: chlordiazePOXIDE HCL 10 MG CAPSULE PO SCH ×4 (05:12→22:24)
--- NOTE | 2018-10-04 09:41 | PN ---
S CIWA - CIWA Score Nausea/Vomitin-No Nausea/No Vomiting Muscle Tremors: 3 Anxiety: 2 Agitation: 2 Paroxysmal Sweats: 1-Minimal Palms Moist Orientation: 0-Oriented Tacttile Disturbances: 0-None Auditory Disturbances: 0-None Visual Disturbances: 0-None Headache: 0-None Present CIWA-Ar Total Score: 8 BHS Progress Note (SOAP) Subjective: requests cane for ambulation that long history of knees arthritis knees no swell no redness non tender reports tremor and mild diarrhea encourage pepto mismout and tylenal or motrin for arthritis pain Objective: 10/04/18 09:40 Vital Signs Temperature 97.6 F 10/04/18 09:14 Pulse Rate 81 10/04/18 09:14 Respiratory Rate 16 10/04/18 09:14 Blood Pressure 150/101 H 10/04/18 09:14 O2 Sat by Pulse Oximetry (%) Laboratory Last Values WBC 4.0 K/mm3 (4.0-10.0) 10/02/18 07:00 RBC 3.48 M/mm3 (4.00-5.60) L 10/02/18 07:00 Hgb 11.3 GM/dL (11.7-16.9) L 10/02/18 07:00 Hct 34.1 % (35.4-49) L 10/02/18 07:00 MCV 98.2 fl (80-96) H 10/02/18 07:00 MCH 32.4 pg (25.7-33.7) 10/02/18 07:00 MCHC 33.0 g/dl (32.0-35.9) 10/02/18 07:00 RDW 13.6 % (11.9-15.9) 10/02/18 07:00 Plt Count 320 K/MM3 (134-434) D 10/02/18 07:00 MPV 7.3 fl (7.5-11.1) L 10/02/18 07:00 Sodium 145 mmol/L (136-145) 10/02/18 07:00 Potassium 4.2 mmol/L (3.5-5.1) 10/02/18 07:00 Chloride 115 mmol/L (98-107) H 10/02/18 07:00 Carbon Dioxide 25 mmol/L (21-32) 10/02/18 07:00 Anion Gap 5 MMOL/L (8-16) L 10/02/18 07:00 BUN 13.0 mg/dL (7-18) 10/02/18 07:00 Creatinine 0.9 mg/dL (0.55-1.3) 10/02/18 07:00 Est GFR (CKD-EPI)AfAm 106.46 10/02/18 07:00 Est GFR (CKD-EPI)NonAf 91.86 10/02/18 07:00 POC Glucometer 126 UNITS (80-120) 10/04/18 05:14 Random Glucose 85 mg/dL (74-106) 10/02/18 07:00 Calcium 8.5 mg/dL (8.5-10.1) 10/02/18 07:00 Total Bilirubin 0.4 mg/dL (0.2-1) 10/02/18 07:00 AST 55 U/L (15-37) H 10/02/18 07:00 ALT 36 U/L (13-61) 10/02/18 07:00 Alkaline Phosphatase 95 U/L (45-117) 10/02/18 07:00 Total Protein 6.3 g/dl (6.4-8.2) L 10/02/18 07:00 Albumin 3.2 g/dl (3.4-5.0) L 10/02/18 07:00 RPR Titer Nonreactive (NONREACTIVE) 10/02/18 07:00 bp elevatin lab noted 10/04/18 09:41 Assessment: 10/04/18 09:42 alcohol withdrawal sx hypertension Plan: continue alcohol detox begin amlodipin 10 mg po daily hold if systolic below 110
[2018-10-04] MEDS ORDERED: amLODIPine BESYLATE 10 MG TABLET (FP) PO SCH (10:00)
[2018-10-04] MEDS: NICOTINE 14 MG/24 HOURS TOPICAL PATCH TD SCH (10:35)
[2018-10-04] MEDS: PRENATAL VITAMINS W/ FOLIC ACID TABLET (FP) PO SCH (10:35)
[2018-10-04] MEDS: THIAMINE HCL 100 MG TABLET (FP) PO SCH (22:24)
[2018-10-05] MEDS ORDERED: chlordiazePOXIDE HCL 10 MG CAPSULE PO SCH (05:00)
[2018-10-05 07:18] VITALS: BP 145/98; PULSE 80; TEMP 97
--- NOTE | 2018-10-05 14:27 | DS ---
[facility] Detox Discharge Summary Admission Date: 10/01/18 Discharge Date: 10/05/18 - History Present History: Alcohol Dependence Additional Comments: 62 years old male admitted on 10/01/18 for acute alcohol withdrawal sx management feeling better today prefers to begin alcohol rehab today alert oriented x 3 speech clearly steady gait aftercare Chemult out patient treatment program - Physical Exam Results Vital Signs: Vital Signs Temperature 97 F L 10/05/18 07:18 Pulse Rate 80 10/05/18 07:18 Respiratory Rate 18 10/05/18 07:18 Blood Pressure 145/98 10/05/18 07:18 O2 Sat by Pulse Oximetry (%) Pertinent Admission Physical Exam Findings: alcohol withdrawal sx Laboratory Last Values WBC 4.0 K/mm3 (4.0-10.0) 10/02/18 07:00 RBC 3.48 M/mm3 (4.00-5.60) L 10/02/18 07:00 Hgb 11.3 GM/dL (11.7-16.9) L 10/02/18 07:00 Hct 34.1 % (35.4-49) L 10/02/18 07:00 MCV 98.2 fl (80-96) H 10/02/18 07:00 MCH 32.4 pg (25.7-33.7) 10/02/18 07:00 MCHC 33.0 g/dl (32.0-35.9) 10/02/18 07:00 RDW 13.6 % (11.9-15.9) 10/02/18 07:00 Plt Count 320 K/MM3 (134-434) D 10/02/18 07:00 MPV 7.3 fl (7.5-11.1) L 10/02/18 07:00 Sodium 145 mmol/L (136-145) 10/02/18 07:00 Potassium 4.2 mmol/L (3.5-5.1) 10/02/18 07:00 Chloride 115 mmol/L (98-107) H 10/02/18 07:00 Carbon Dioxide 25 mmol/L (21-32) 10/02/18 07:00 Anion Gap 5 MMOL/L (8-16) L 10/02/18 07:00 BUN 13.0 mg/dL (7-18) 10/02/18 07:00 Creatinine 0.9 mg/dL (0.55-1.3) 10/02/18 07:00 Est GFR (CKD-EPI)AfAm 106.46 10/02/18 07:00 Est GFR (CKD-EPI)NonAf 91.86 10/02/18 07:00 POC Glucometer 88 UNITS (80-120) 10/05/18 07:18 Random Glucose 85 mg/dL (74-106) 10/02/18 07:00 Calcium 8.5 mg/dL (8.5-10.1) 10/02/18 07:00 Total Bilirubin 0.4 mg/dL (0.2-1) 10/02/18 07:00 AST 55 U/L (15-37) H 10/02/18 07:00 ALT 36 U/L (13-61) 10/02/18 07:00 Alkaline Phosphatase 95 U/L (45-117) 10/02/18 07:00 Total Protein 6.3 g/dl (6.4-8.2) L 10/02/18 07:00 Albumin 3.2 g/dl (3.4-5.0) L 10/02/18 07:00 RPR Titer Nonreactive (NONREACTIVE) 10/02/18 07:00 TB (QFT) Incubation (.) 10/02/18 07:00 TB Test (QFT) Nil 0.24 IU/mL (.) 10/02/18 07:00 TB Test (QFT) Mitogen 1.84 IU/mL (.) 10/02/18 07:00 TB Test (QFT) Antigen 6.79 IU/mL (.) 10/02/18 07:00 TB Test (QFT) Positive (Negative) H 10/02/18 07:00 TB Positive Criteria (.) 10/02/18 07:00 patient is known for Positive ppd patient is asymptomoatice, none smoker, attempted to contact the patient address not available chest x ray negative 12/2016 lab noted positive ppd chest x ray - Treatment Hospital Course: Detox Protocol Followed, Detoxed Safely, Responded well, Discharged Condition Good, Rehab Referral Accepted Patient has Accepted a Rehab Referral to: new focus - Medication Discharge Medications: Ambulatory Orders NK [No Known Home Medication] 10/01/18 - Diagnosis (1) Positive PPD Status: Resolved (2) Nicotine dependence Status: Acute Qualifiers: Nicotine product type: cigarettes Substance use status: in withdrawal Qualified Code(s): F17.213 - Nicotine dependence, cigarettes, with withdrawal (3) GERD (gastroesophageal reflux disease) Status: Chronic Qualifiers: Esophagitis presence: without esophagitis Qualified Code(s): K21.9 - Gastro -esophageal reflux disease without esophagitis (4) Glaucoma Status: Chronic Qualifiers: Glaucoma type: unspecified Laterality: bilateral Qualified Code(s): H40.9 - Unspecified glaucoma (5) Alcohol dependence with uncomplicated withdrawal Status: Acute - AMA Did Patient Leave Against Medical Advice: No
[2018-10-06] MEDS ORDERED: chlordiazePOXIDE HCL 10 MG CAPSULE PO ONE (05:00)
== END 2018-10-05 09:10 | disposition home or self-care (01) | DRG 775 ==
LOC: YASAS 20:45 → Y3N 21:57
PROVIDERS: ADMIT Surgery; ATTEND Surgery
PROC: HZ2ZZZZ Detoxification Services for Substance Abuse Treatment (ICD-10-PCS; principal; 2018-10-01)
DX: F10.230 Alcohol dependence with withdrawal, uncomplicated (principal); F17.213 Nicotine dependence, cigarettes, with withdrawal; I10 Essential (primary) hypertension; K21.9 Gastro-esophageal reflux disease without esophagitis; H40.9 Unspecified glaucoma; Z86.69 Personal history of other diseases of the nervous system and sense organs
CPT/HCPCS: 36415; 80053; 82962; 85027; 86480; 86593

== ENCOUNTER 2019-01-13 10:52 | Inpatient (IN) | payer OTHER ==
[2019-01-13 11:11] VITALS: BMI 20.3
--- NOTE | 2019-01-13 11:41 | HP ---
CIWA Score Nausea/Vomitin Muscle Tremors: 3 Anxiety: 2 Agitation: 1-Slight > Activity Paroxysmal Sweats: 1-Minimal Palms Moist Orientation: 1-Uncertain about Date Tacttile Disturbances: 0-None Auditory Disturbances: 0-None Visual Disturbances: 0-None Headache: 5-Severe CIWA-Ar Total Score: 16 - Admission Criteria [facility] Guidelines: Admission for Medically Managed Detox: Requires at least one of the followin. CIWA greater than 12 2. Seizures within the past 24 hours 3. Delirium tremens within the past 24 hours 4. Hallucinations within the past 24 hours 5. Acute intervention needed for co occurring medical disorder 6. Acute intervention needed for co occurring psychiatric disorder 7. Severe withdrawal that cannot be handled at a lower level of care (continued vomiting, continued diarrhea, abnormal vital signs) requiring intravenous medication and/or fluids 8. Admitting History and Physical - Admission Chief Complaint: I want to stop drinking." History of Present Illness: 63 year old black male with history of alcohol dependence with withdrawals. He had a seizure and hit his head at [facility] and had a blackout. He had stitches in the back of his head that were already healed and removed. Apparently he was in the ER for two days for unknown fall and possible blackout but he is a very poor historian. He is drinking 3 pints of vodka daily, last drank at 10AM this morning. He is also cocaine 3 times per day, last used yesterday. He smokes ciggarettes 1 ppd daily if he has the money, last smoked this morning. 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 Psych: Bipolar Disorder, but not compliant with meds, last taken 8 months ago. He is homeless and in retirement system Patient denies any legal issues. Limitations to Obtaining History: No Limitations, Poor Historian - Past Medical History Cardiovascular: Yes: HTN Gastrointestinal: Yes: GERD - Past Surgical History Past Surgical History: Yes: Nephrectomy - Advance Directives Advance Directives: No: Living Will, Health Care Proxy, DNR - Smoking History Smoking history: Current every day smoker Have you smoked in the past 12 months: Yes Aproximately how many cigarettes per day: 20 - Alcohol/Substance Use Hx Alcohol Use: Yes Number of Drinks Daily: 10 History of Substance Use: reports: Cocaine Date of Last Use: 01/13/19 - Social History Usual Living Arrangement: Yes: Alone Do you think of yourself as: Straight/Heterosexual ADL: Independent Occupation: unemployed and homeless History of Recent Travel: No Admission [facility] Chief Complaint: "I want to stop drinking." Allergies/Adverse Reactions: Allergies Allergy/AdvReac Type Severity Reaction Status Date / Time No Known Allergies Allergy Verified 01/13/19 11:04 History of Present Illness: 63 year old black male with history of alcohol dependence with withdrawals. He had a seizure and hit his head at [facility] and had a blackout. He had stitches in the back of his head that were already healed and removed. Apparently he was in the ER for two days for unknown fall and possible blackout but he is a very poor historian. He is drinking 3 pints of vodka daily, last drank at 10AM this morning. He is also cocaine 3 times per day, last used yesterday. He smokes ciggarettes 1 ppd daily if he has the money, last smoked this morning. 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 Psych: Bipolar Disorder, but not compliant with meds, last taken 8 months ago. He is homeless and in retirement system Patient denies any legal issues. - Ebola screening Have you traveled outside of the country in the last 21 days: No Have you had contact with anyone from an Ebola affected area: No Have you been sick,other than usual withdrawal symptoms: No Do you have a fever: No - Review of Systems Constitutional: Chills, Unintentional Wgt. Loss EENT: reports: No Symptoms Reported Respiratory: reports: No Symptoms reported Cardiac: reports: No Symptoms Reported GI: reports: No Symptoms Reported : reports: No Symptoms Reported Musculoskeletal: reports: No Symptoms Reported Integumentary: reports: No Symptoms Reported Neuro: reports: No Symptoms reported Endocrine: reports: No Symptoms Reported Hematology: reports: No Symptoms Reported Psychiatric: reports: Judgement Intact, Mood/Affect Appropiate, Orientated x3 Other Systems: Reviewed and Negative Patient History - Patient Medical History Hx Anemia: No Hx Asthma: No Hx Chronic Obstructive Pulmonary Disease (COPD): No Hx Cardiac Disorders: No Hx Hypertension: Yes Hx Hypercholesterolemia: No Hx Seizures: Yes (alcohol related-last episode was 11 mos. ago) Hx Dementia: No Hx Diabetes: No Hx Gastrointestinal Disorders: Yes (acid reflux) Hx Genitourinary Disorders: No Hx Sexually Transmitted Disorders: No Hx Renal Disease (ESRD): No Hx Thyroid Disease: No Hx Human Immunodeficiency Virus (HIV): No (NEGATIVE HX) Hx Hepatitis C: No Hx Depression: Yes Hx Suicide Attempt: No (denies) Hx Bipolar Disorder: No Hx Schizophrenia: No - Patient Surgical History Past Surgical History: Yes Hx Neurologic Surgery: No Hx Cataract Extraction: No Hx Cardiac Surgery: No Hx Lung Surgery: No Hx Breast Surgery: No Hx Breast Biopsy: No Hx Abdominal Surgery: No Hx Appendectomy: No Hx Cholecystectomy: No Hx Genitourinary Surgery: Yes (R nephrectomy sx for a mass in 2009) Hx Section: No Hx Orthopedic Surgery: No Anesthesia Reaction: No - Smoking Cessation Smoking history: Current every day smoker Have you smoked in the past 12 months: Yes Aproximately how many cigarettes per day: 20 Hx Chewing Tobacco Use: No Initiated information on smoking cessation: Yes 'Breaking Loose' booklet given: 01/13/19 - Substances abused Alcohol Substance route: Oral Frequency: Daily Amount used: 2-3pints of vodka Age of first use: 22 Date of last use: 01/13/19 Admission Physical Exam [facility] - Vital Signs Vital Signs: Vital Signs - 24 hr 01/13/19 11:04 Temperature 98.9 F Pulse Rate 96 H Respiratory 16 Rate Blood Pressure 141/97 - Physical General Appearance: Yes: Mild Distress, Alcohol on Breath, Intoxicated HEENTM: Yes: EOMI, Hearing grossly Normal, Normal ENT Inspection, Normocephalic , Normal Voice, MARY, Pharynx Normal, Other (old scars on back of his head) Respiratory: Yes: Chest Non-Tender, Lungs Clear, Normal Breath Sounds, No Respiratory Distress, No Accessory Muscle Use Neck: Yes: No masses,lesions,Nodules, Supple, Trachea in good position Breast: Yes: Within Normal Limits Cardiology: Yes: Regular Rhythm, Regular Rate, S1, S2 Abdominal: Yes: Non Tender, Flat, Soft, Increased Bowel Sounds Genitourinary: Yes: Within Normal Limits Back: Yes: Normal Inspection Musculoskeletal: Yes: Within Normal Limits, full range of Motion, Gait Steady, Pelvis Stable Extremities: Yes: Normal Capillary Refill, Normal Inspection, Normal Range of Motion, Non-Tender Neurological: Yes: materials scientist 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 intact, Fully Oriented, Alert, Motor Strength 5/5, Normal Mood/Affect, Normal Response Integumentary: Yes: Normal Color, Warm Lymphatic: Yes: Within Normal Limits - Diagnostic (1) Alcohol dependence with uncomplicated withdrawal Current Visit: Yes Status: Acute (2) Cocaine dependence Current Visit: Yes Status: Acute Qualifiers: (3) Nicotine dependence Current Visit: Yes Status: Acute Qualifiers: Nicotine product type: cigarettes Substance use status: in withdrawal Qualified Code(s): F17.213 - Nicotine dependence, cigarettes, with withdrawal (4) GERD (gastroesophageal reflux disease) Current Visit: Yes Status: Chronic Qualifiers: Esophagitis presence: without esophagitis Qualified Code(s): K21.9 - Gastro -esophageal reflux disease without esophagitis (5) Glaucoma Current Visit: Yes Status: Chronic Qualifiers: Glaucoma type: unspecified Laterality: bilateral Qualified Code(s): H40.9 - Unspecified glaucoma (6) H/O unilateral nephrectomy Current Visit: Yes Status: Chronic (7) Seizure disorder Current Visit: Yes Status: Chronic (8) Positive PPD Current Visit: Yes Status: Resolved Cleared for Admission S - Detox or Rehab [facility] Level of Care: Medically Managed Screened but not Admitted - Documentation of Visit Screened but not Admitted: No Breathalyzer - Breathalyzer Breathalyzer: 0.213 Vital Signs - Vital Signs Vital signs refused: No Urine Drug Screen - Test Device Lot number: [id number] Expiration date: 07/14/20 - Control Is test valid?: Yes - Results Drug screen NEGATIVE: No Urine drug screen results: SCOTT-Cocaine, BZO-Benzodiazepines Inpatient Rehab Admission - Rehab Decision to Admit Inpatient rehab admission?: No
[2019-01-13] MEDS ORDERED: MENTHOL/PHENOL 1 EACH UD MM PRN (11:48)
[2019-01-13] MEDS ORDERED: IBUPROFEN 400 MG TABLET (FP) PO PRN (11:48)
[2019-01-13] MEDS ORDERED: chlordiazePOXIDE HCL 25 MG CAPSULE PO PRN (11:48)
[2019-01-13] MEDS ORDERED: BISMUTH SUBSALICYLATE 262 MG/15 ML BTL PO PRN (11:48)
[2019-01-13] MEDS ORDERED: hydrOXYzine PAMOATE 25 MG CAPSULE (FP) PO PRN (11:48)
[2019-01-13] MEDS ORDERED: METHOCARBAMOL 500 MG TABLET PO PRN (11:48)
[2019-01-13] MEDS ORDERED: MAGNESIUM CITRATE 300 ML BOTTLE PO PRN (11:48)
[2019-01-13] MEDS ORDERED: ACETAMINOPHEN 325 MG TABLET (FP) PO PRN (11:48)
[2019-01-13] MEDS ORDERED: MAGNESIUM HYDROX 2400MG/30ML ORAL SUSPENSION 30 ML CUP PO PRN (11:48)
[2019-01-13 14:53] LABS: HEMATOCRIT 31.8 % (35.4-49); HEMOGLOBIN 10.4 GM/dL (11.7-16.9); MCH 32.6 pg (25.7-33.7); MCHC 32.8 g/dl (32.0-35.9); MEAN CELL VOLUME 99.6 fl (80-96); MEAN PLT VOLUME 6.5 fl (7.5-11.1); PLATELET COUNT 262 K/MM3 (134-434); RBC 3.19 M/mm3 (4.00-5.60); RDW 14.4 % (11.9-15.9); WHITE BLOOD COUNT 4.3 K/mm3 (4.0-10.0)
[2019-01-13 15:09] LABS: ALBUMIN 3.2 g/dl (3.4-5.0); BILIRUBIN,TOTAL 0.3 mg/dL (0.2-1); BLOOD UREA NITROGEN 12.5 mg/dL (7-18); CALCIUM 8.9 mg/dL (8.5-10.1); CREATININE 0.8 mg/dL (0.55-1.3); POTASSIUM 3.9 mmol/L (3.5-5.1); TOT PROT 6.7 g/dl (6.4-8.2)
[2019-01-13] MEDS: chlordiazePOXIDE HCL 25 MG CAPSULE PO SCH ×2 (17:49→22:11)
[2019-01-13] MEDS: MAG HYDROX/AL HYDROX/SIMETH 30 ML UNIT-DOSE CUP PO PRN (17:50)
[2019-01-13] MEDS: THIAMINE HCL 100 MG TABLET (FP) PO SCH (22:11)
[2019-01-13] MEDS: MELATONIN 5 MG TABLETS PO PRN (22:11)
[2019-01-14] MEDS: chlordiazePOXIDE HCL 25 MG CAPSULE PO SCH ×4 (06:16→22:20)
[2019-01-14] MEDS: MAG HYDROX/AL HYDROX/SIMETH 30 ML UNIT-DOSE CUP PO PRN ×2 (06:19→22:21)
--- NOTE | 2019-01-14 10:01 | PN ---
[facility] CIWA - CIWA Score Nausea/Vomitin-Mild Nausea/No Vomiting Muscle Tremors: 2 Anxiety: 2 Agitation: 2 Paroxysmal Sweats: No Perspiration Orientation: 0-Oriented Tacttile Disturbances: 1-Very Mild Itch/Numbness Auditory Disturbances: 0-None Visual Disturbances: 0-None Headache: 1-Very Mild CIWA-Ar Total Score: 9 S Progress Note (SOAP) Subjective: alert,irritable,anxious,interrupted sleep,tremor,pain in the body Objective: 01/14/19 09:59 Vital Signs Temperature 98.1 F 01/14/19 09:20 Pulse Rate 92 H 01/14/19 09:20 Respiratory Rate 18 01/14/19 09:20 Blood Pressure 149/82 01/14/19 09:20 O2 Sat by Pulse Oximetry (%) Laboratory Last Values WBC 4.3 K/mm3 (4.0-10.0) 01/13/19 11:55 RBC 3.19 M/mm3 (4.00-5.60) L 01/13/19 11:55 Hgb 10.4 GM/dL (11.7-16.9) L 01/13/19 11:55 Hct 31.8 % (35.4-49) L 01/13/19 11:55 MCV 99.6 fl (80-96) H 01/13/19 11:55 MCH 32.6 pg (25.7-33.7) 01/13/19 11:55 MCHC 32.8 g/dl (32.0-35.9) 01/13/19 11:55 RDW 14.4 % (11.9-15.9) 01/13/19 11:55 Plt Count 262 K/MM3 (134-434) 01/13/19 11:55 MPV 6.5 fl (7.5-11.1) L D 01/13/19 11:55 Sodium 142 mmol/L (136-145) 01/13/19 11:55 Potassium 3.9 mmol/L (3.5-5.1) 01/13/19 11:55 Chloride 108 mmol/L (98-107) H 01/13/19 11:55 Carbon Dioxide 25 mmol/L (21-32) 01/13/19 11:55 Anion Gap 10 MMOL/L (8-16) 01/13/19 11:55 BUN 12.5 mg/dL (7-18) 01/13/19 11:55 Creatinine 0.8 mg/dL (0.55-1.3) 01/13/19 11:55 Est GFR (CKD-EPI)AfAm 110.96 01/13/19 11:55 Est GFR (CKD-EPI)NonAf 95.74 01/13/19 11:55 Random Glucose 104 mg/dL (74-106) 01/13/19 11:55 Calcium 8.9 mg/dL (8.5-10.1) 01/13/19 11:55 Total Bilirubin 0.3 mg/dL (0.2-1) 01/13/19 11:55 AST 173 U/L (15-37) H 01/13/19 11:55 ALT 72 U/L (13-61) H 01/13/19 11:55 Alkaline Phosphatase 152 U/L (45-117) H 01/13/19 11:55 Total Protein 6.7 g/dl (6.4-8.2) 01/13/19 11:55 Albumin 3.2 g/dl (3.4-5.0) L 01/13/19 11:55 RPR Titer Nonreactive (NONREACTIVE) 01/13/19 11:55 Assessment: 01/14/19 10:00 withdrawal symptom Plan: continue detox librium regimen,repeat alt,ast due to elevation of alt and ast
[2019-01-14] MEDS: amLODIPine BESYLATE 10 MG TABLET (FP) PO SCH (10:18)
[2019-01-14] MEDS: PRENATAL VITAMINS W/ FOLIC ACID TABLET (FP) PO SCH (10:18)
[2019-01-14] MEDS: NICOTINE 14 MG/24 HOURS TOPICAL PATCH TD SCH (10:20)
[2019-01-14] MEDS: ACETAMINOPHEN 325 MG TABLET (FP) PO PRN (13:31)
[2019-01-14] MEDS: THIAMINE HCL 100 MG TABLET (FP) PO SCH (22:21)
[2019-01-15] MEDS: chlordiazePOXIDE HCL 25 MG CAPSULE PO SCH ×4 (06:15→22:11)
[2019-01-15] MEDS: MAG HYDROX/AL HYDROX/SIMETH 30 ML UNIT-DOSE CUP PO PRN ×3 (06:16→22:12)
[2019-01-15] MEDS: amLODIPine BESYLATE 10 MG TABLET (FP) PO SCH (10:13)
[2019-01-15] MEDS: PRENATAL VITAMINS W/ FOLIC ACID TABLET (FP) PO SCH (10:13)
[2019-01-15] MEDS: NICOTINE 14 MG/24 HOURS TOPICAL PATCH TD SCH (10:13)
[2019-01-15 10:45] LABS: SGOT/AST 61 U/L (15-37); SGPT/ALT 49 U/L (13-61)
--- NOTE | 2019-01-15 12:31 | PN ---
S CIWA - CIWA Score Nausea/Vomitin-Mild Nausea/No Vomiting Muscle Tremors: 1-None Visible, but [place] Anxiety: 1-Mildly Anxious Agitation: 1-Slight > Activity Paroxysmal Sweats: 2 Orientation: 0-Oriented Tacttile Disturbances: 2-Mild Itch/Numbness/Burn Auditory Disturbances: 0-None Visual Disturbances: 0-None Headache: 0-None Present CIWA-Ar Total Score: 8 BHS Progress Note (SOAP) Subjective: interrupted sleep, sweats, rt hip pain Objective: 01/15/19 12:27 Vital Signs Temperature 97.9 F 01/15/19 09:31 Pulse Rate 94 H 01/15/19 09:31 Respiratory Rate 19 01/15/19 09:31 Blood Pressure 147/98 01/15/19 09:31 O2 Sat by Pulse Oximetry (%) Laboratory Tests 01/13/19 01/13/19 01/13/19 11:55 11:55 11:55 WBC 4.3 RBC 3.19 L Hgb 10.4 L Hct 31.8 L MCV 99.6 H MCH 32.6 MCHC 32.8 RDW 14.4 Plt Count 262 MPV 6.5 L D Sodium 142 Potassium 3.9 Chloride 108 H Carbon Dioxide 25 Anion Gap 10 BUN 12.5 Creatinine 0.8 Est GFR (CKD-EPI)AfAm 110.96 Est GFR (CKD-EPI)NonAf 95.74 Random Glucose 104 Calcium 8.9 Total Bilirubin 0.3 AST 173 H ALT 72 H Alkaline Phosphatase 152 H Total Protein 6.7 Albumin 3.2 L RPR Titer Nonreactive 01/15/19 07:40 WBC RBC Hgb Hct MCV MCH MCHC RDW Plt Count MPV Sodium Potassium Chloride Carbon Dioxide Anion Gap BUN Creatinine Est GFR (CKD-EPI)AfAm Est GFR (CKD-EPI)NonAf Random Glucose Calcium Total Bilirubin AST 61 H ALT 49 Alkaline Phosphatase Total Protein Albumin RPR Titer pt aox3 lying in bed in nad Assessment: 01/15/19 12:28 withdrawal sx's anemia elevated transaminases improved 01/15/19 13:41 Plan: cont. detox increase fluids cane motrin prn d/c tylenol
[2019-01-15] MEDS: THIAMINE HCL 100 MG TABLET (FP) PO SCH (22:11)
[2019-01-15] MEDS: MELATONIN 5 MG TABLETS PO PRN (22:12)
[2019-01-16] MEDS ORDERED: chlordiazePOXIDE HCL 10 MG CAPSULE PO PRN
[2019-01-16] MEDS: chlordiazePOXIDE HCL 10 MG CAPSULE PO SCH ×4 (05:47→22:18)
[2019-01-16] MEDS: NICOTINE 14 MG/24 HOURS TOPICAL PATCH TD SCH (10:23)
[2019-01-16] MEDS: amLODIPine BESYLATE 10 MG TABLET (FP) PO SCH (10:25)
[2019-01-16] MEDS: MAG HYDROX/AL HYDROX/SIMETH 30 ML UNIT-DOSE CUP PO PRN (10:25)
[2019-01-16] MEDS: PRENATAL VITAMINS W/ FOLIC ACID TABLET (FP) PO SCH (10:25)
[2019-01-16] MEDS ORDERED: IBUPROFEN 600 MG TABLET (FP) PO PRN (10:50)
--- NOTE | 2019-01-16 10:53 | PN ---
S CIWA - CIWA Score Nausea/Vomitin-No Nausea/No Vomiting Muscle Tremors: 3 Anxiety: 2 Agitation: 2 Paroxysmal Sweats: 2 Orientation: 0-Oriented Tacttile Disturbances: 0-None Auditory Disturbances: 0-None Visual Disturbances: 0-None Headache: 0-None Present CIWA-Ar Total Score: 9 BHS Progress Note (SOAP) Subjective: sweats right hip pain shakes insomnia interrupted sleep Objective: 01/16/19 10:51 Vital Signs Temperature 97.8 F 01/16/19 09:20 Pulse Rate 79 01/16/19 09:20 Respiratory Rate 18 01/16/19 09:20 Blood Pressure 139/87 01/16/19 09:20 O2 Sat by Pulse Oximetry (%) Laboratory Tests 01/13/19 01/13/19 01/13/19 11:55 11:55 11:55 WBC 4.3 RBC 3.19 L Hgb 10.4 L Hct 31.8 L MCV 99.6 H MCH 32.6 MCHC 32.8 RDW 14.4 Plt Count 262 MPV 6.5 L D Sodium 142 Potassium 3.9 Chloride 108 H Carbon Dioxide 25 Anion Gap 10 BUN 12.5 Creatinine 0.8 Est GFR (CKD-EPI)AfAm 110.96 Est GFR (CKD-EPI)NonAf 95.74 Random Glucose 104 Calcium 8.9 Total Bilirubin 0.3 AST 173 H ALT 72 H Alkaline Phosphatase 152 H Total Protein 6.7 Albumin 3.2 L RPR Titer Nonreactive 01/15/19 07:40 WBC RBC Hgb Hct MCV MCH MCHC RDW Plt Count MPV Sodium Potassium Chloride Carbon Dioxide Anion Gap BUN Creatinine Est GFR (CKD-EPI)AfAm Est GFR (CKD-EPI)NonAf Random Glucose Calcium Total Bilirubin AST 61 H ALT 49 Alkaline Phosphatase Total Protein Albumin RPR Titer labs noted aaox3 ambulating no acute distress Assessment: 01/16/19 10:52 withdrawals Plan: continue detox increase fluids lidocaine patch to apply to right side of hip cane ordered melatonin increased to 10mg qhs
[2019-01-16] MEDS ORDERED: LIDOCAINE 5% TOPICAL PATCH TP SCH (11:00)
[2019-01-16] MEDS ORDERED: LIDOCAINE PATCH REMOVAL MC SCH (22:00)
[2019-01-16] MEDS ORDERED: MELATONIN 5 MG TABLETS PO PRN (22:00)
[2019-01-16] MEDS: THIAMINE HCL 100 MG TABLET (FP) PO SCH (22:18)
[2019-01-16] MEDS: ACETAMINOPHEN 325 MG TABLET (FP) PO PRN (22:19)
[2019-01-17] MEDS ORDERED: chlordiazePOXIDE HCL 10 MG CAPSULE PO SCH (05:00)
[2019-01-17] MEDS: MAG HYDROX/AL HYDROX/SIMETH 30 ML UNIT-DOSE CUP PO PRN (06:09)
[2019-01-17 09:30] VITALS: BP 135/98; PULSE 81; TEMP 96.3
--- NOTE | 2019-01-17 12:25 | DS ---
[facility] Detox Discharge Summary Admission Date: 01/13/19 Discharge Date: 01/17/19 - History Present History: Alcohol Dependence Additional Comments: Patient initially told bond underwriter that the counselor told him yesterday that he was scheduled for discharge today. Patient later came to bond underwriter and told bond underwriter that the josé who picked him pick and brought him her at [facility] told him that he has to be discharged today otherwise, he will lose his bed at the long term. Patient told bond underwriter during rounds that he was experiencing withdrawal sxs: chills, sweat, headache, stomachache. Tobacco Classer asked patient to provide his long term's information so that she can contact the long term and also told patient he is scheduled for discharge tomorrow but patient insisted and leaving today JOHNNY and refused to provide his long term's information. Patient instructed to call [phone] JOHNNY if sick or withdrawal sxs and to see his PCP within 3 days in which he verbalized understanding. Patient aware bond underwriter cannot discharge him due to complaint of withdrawal sxs and encouraged patient to complete detox but he refused. Pertinent Past History: Alcohol dependence Seizure disorder Nicotine dependence HTN GERD - Physical Exam Results Vital Signs: Vital Signs Temperature 96.3 F L 01/17/19 09:29 Pulse Rate 81 01/17/19 09:29 Respiratory Rate 18 01/17/19 09:29 Blood Pressure 135/98 01/17/19 09:29 O2 Sat by Pulse Oximetry (%) Pertinent Admission Physical Exam Findings: Withdrawal sxs Laboratory Tests 01/13/19 01/13/19 01/13/19 11:55 11:55 11:55 WBC 4.3 RBC 3.19 L Hgb 10.4 L Hct 31.8 L MCV 99.6 H MCH 32.6 MCHC 32.8 RDW 14.4 Plt Count 262 MPV 6.5 L D Sodium 142 Potassium 3.9 Chloride 108 H Carbon Dioxide 25 Anion Gap 10 BUN 12.5 Creatinine 0.8 Est GFR (CKD-EPI)AfAm 110.96 Est GFR (CKD-EPI)NonAf 95.74 Random Glucose 104 Calcium 8.9 Total Bilirubin 0.3 AST 173 H ALT 72 H Alkaline Phosphatase 152 H Total Protein 6.7 Albumin 3.2 L RPR Titer Nonreactive 01/15/19 07:40 WBC RBC Hgb Hct MCV MCH MCHC RDW Plt Count MPV Sodium Potassium Chloride Carbon Dioxide Anion Gap BUN Creatinine Est GFR (CKD-EPI)AfAm Est GFR (CKD-EPI)NonAf Random Glucose Calcium Total Bilirubin AST 61 H ALT 49 Alkaline Phosphatase Total Protein Albumin RPR Titer Labs reviewed: anemia noted, mild (most likely r/t alcoholism, instructed to follow up with PCP for management) - Treatment Hospital Course: Responded well - Medication Discharge Medications: Ambulatory Orders Amlodipine Besylate [Norvasc -] 10 mg PO DAILY 01/13/19 - Diagnosis (1) HTN (hypertension), benign Status: Acute (2) Alcohol dependence with uncomplicated withdrawal Status: Acute (3) Anemia Status: Acute (4) Nicotine dependence Status: Acute Qualifiers: Nicotine product type: cigarettes Substance use status: in withdrawal Qualified Code(s): F17.213 - Nicotine dependence, cigarettes, with withdrawal (5) GERD (gastroesophageal reflux disease) Status: Chronic Qualifiers: Esophagitis presence: without esophagitis Qualified Code(s): K21.9 - Gastro -esophageal reflux disease without esophagitis (6) Seizure disorder Status: Chronic - AMA Did Patient Leave Against Medical Advice: Yes (Instructed to call 911 JOHNNY if sick or withdrawal sxs)
[2019-01-18] MEDS ORDERED: chlordiazePOXIDE HCL 10 MG CAPSULE PO ONE (05:00)
== END 2019-01-17 09:00 | disposition left against medical advice (07) | DRG 770 ==
LOC: YASAS 10:52 → Y6N 12:08
PROVIDERS: ADMIT Allergy & Immunology; ATTEND Allergy & Immunology
PROC: HZ2ZZZZ Detoxification Services for Substance Abuse Treatment (ICD-10-PCS; principal; 2019-01-13)
DX: F10.230 Alcohol dependence with withdrawal, uncomplicated (principal); F10.220 Alcohol dependence with intoxication, uncomplicated; F14.20 Cocaine dependence, uncomplicated; F17.213 Nicotine dependence, cigarettes, with withdrawal; I10 Essential (primary) hypertension; D64.9 Anemia, unspecified; K21.9 Gastro-esophageal reflux disease without esophagitis; R74.0 Nonspecific elevation of levels of transaminase and lactic acid dehydrogenase [LDH]; G40.909 Epilepsy, unspecified, not intractable, without status epilepticus; H40.9 Unspecified glaucoma; Z90.5 Acquired absence of kidney
CPT/HCPCS: 36415; 71046-TC-FY; 80053; 84450; 84460; 85027; 86593

== ENCOUNTER 2019-02-10 09:29 | Inpatient (IN) | payer OTHER ==
[2019-02-10 11:01] VITALS: BMI 20.2
--- NOTE | 2019-02-10 11:33 | HP ---
CIWA Score Nausea/Vomitin Muscle Tremors: 5 Anxiety: 3 Agitation: 3 Paroxysmal Sweats: 3 Orientation: 2-Disoriented Date<2 days Tacttile Disturbances: 0-None Auditory Disturbances: 0-None Visual Disturbances: 1-Very Mild Sensitivity Headache: 5-Severe CIWA-Ar Total Score: 25 - Admission Criteria OASAS Guidelines: Admission for Medically Managed Detox: Requires at least one of the followin. CIWA greater than 12 2. Seizures within the past 24 hours 3. Delirium tremens within the past 24 hours 4. Hallucinations within the past 24 hours 5. Acute intervention needed for co occurring medical disorder 6. Acute intervention needed for co occurring psychiatric disorder 7. Severe withdrawal that cannot be handled at a lower level of care (continued vomiting, continued diarrhea, abnormal vital signs) requiring intravenous medication and/or fluids 8. Admitting History and Physical - Admission Chief Complaint: "I want to stop drinking and to get rid of my shakes and my liver is burning" History of Present Illness: 63 year old black male with history of alcohol dependence with withdrawals. He had a seizure and hit his head at [facility] and had a blackout. He is drinking 3 pints of vodka daily, last drank at 10AM this morning. He is also cocaine 3-4 bags per day, last used yesterday. He smokes ciggarettes 1 ppd daily if he has the money, last smoked this morning. 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 Psych: Bipolar Disorder, but not compliant with meds, last taken 8 months ago. Psurg: Right nephrectomy He is homeless and in senior care system Patient denies any legal issues. History Source: Patient Limitations to Obtaining History: No Limitations - Past Medical History Cardiovascular: Yes: HTN Gastrointestinal: Yes: GERD - Past Surgical History Past Surgical History: Yes: Nephrectomy - Smoking History Smoking history: Current every day smoker Have you smoked in the past 12 months: Yes Aproximately how many cigarettes per day: 20 - Alcohol/Substance Use Hx Alcohol Use: Yes Number of Drinks Daily: 10 History of Substance Use: reports: Cocaine Date of Last Use: 01/13/19 - Social History Usual Living Arrangement: Yes: Alone Do you think of yourself as: Straight/Heterosexual ADL: Independent Occupation: unemployed and homeless History of Recent Travel: No Admission ROS BHS - HPI Allergies/Adverse Reactions: Allergies Allergy/AdvReac Type Severity Reaction Status Date / Time No Known Allergies Allergy Verified 02/10/19 10:52 Exam Limitations: No Limitations - Ebola screening Have you traveled outside of the country in the last 21 days: No Have you had contact with anyone from an Ebola affected area: No Have you been sick,other than usual withdrawal symptoms: No Do you have a fever: No - Review of Systems Constitutional: Chills, Diaphoresis, Loss of Appetite, Unintentional Wgt. Loss EENT: reports: No Symptoms Reported Respiratory: reports: No Symptoms reported Cardiac: reports: No Symptoms Reported GI: reports: Difficulty Swallowing, Nausea : reports: No Symptoms Reported Musculoskeletal: reports: Back Pain Integumentary: reports: No Symptoms Reported Neuro: reports: No Symptoms reported Endocrine: reports: No Symptoms Reported Hematology: reports: No Symptoms Reported Psychiatric: reports: Judgement Intact, Mood/Affect Appropiate, Orientated x3 Other Systems: Reviewed and Negative Patient History - Patient Medical History Hx Anemia: No Hx Asthma: No Hx Chronic Obstructive Pulmonary Disease (COPD): No Hx Cardiac Disorders: No Hx Hypertension: Yes Hx Hypercholesterolemia: No Hx Seizures: Yes (last seizure was last night) Hx Dementia: No Hx Diabetes: No Hx Gastrointestinal Disorders: Yes (acid reflux) Hx Genitourinary Disorders: No Hx Sexually Transmitted Disorders: No Hx Renal Disease (ESRD): No Hx Thyroid Disease: No Hx Human Immunodeficiency Virus (HIV): No (NEGATIVE HX) Hx Hepatitis C: No Hx Depression: No Hx Suicide Attempt: No Hx Bipolar Disorder: No Hx Schizophrenia: No - Patient Surgical History Past Surgical History: Yes Hx Neurologic Surgery: No Hx Cataract Extraction: No Hx Cardiac Surgery: No Hx Lung Surgery: No Hx Breast Surgery: No Hx Breast Biopsy: No Hx Abdominal Surgery: No Hx Appendectomy: No Hx Cholecystectomy: No Hx Genitourinary Surgery: Yes (R nephrectomy sx for a mass in 2009) Hx Section: No Hx Orthopedic Surgery: No Anesthesia Reaction: No - PPD History Previous Implant?: No Documented Results: Positive w/o proof Implanted On Prior R Admission?: No Date: 01/13/19 Results: unknown PPD to be Administered?: No - Smoking Cessation Smoking history: Current every day smoker Have you smoked in the past 12 months: Yes Aproximately how many cigarettes per day: 20 Hx Chewing Tobacco Use: No Initiated information on smoking cessation: Yes 'Breaking Loose' booklet given: 02/10/19 - Substances abused Alcohol Substance route: Oral Frequency: Daily Amount used: 2-3pints of vodka Age of first use: 22 Date of last use: 02/09/19 Cocaine Substance route: Inhalation Frequency: Daily Amount used: 2 to 3 bags Age of first use: 19 Date of last use: 02/09/19 Admission Physical Exam S - Vital Signs Vital Signs: Vital Signs - 24 hr 02/10/19 02/10/19 10:51 11:23 Temperature 97.3 F L 97.3 F L Pulse Rate 89 89 Respiratory 89 H 89 H Rate Blood Pressure 170/95 170/95 - Physical General Appearance: Yes: Moderate Distress, Alcohol on Breath HEENTM: Yes: EOMI, Hearing grossly Normal, Normocephalic, Normal Voice, MARY, Pharynx Normal, Tm's normal, Other (scar over left eyebrow) Respiratory: Yes: Chest Non-Tender, Lungs Clear, Normal Breath Sounds, No Respiratory Distress, No Accessory Muscle Use Neck: Yes: No masses,lesions,Nodules, Supple, Trachea in good position Breast: Yes: Within Normal Limits Cardiology: Yes: Regular Rhythm, Regular Rate, S1, S2 Abdominal: Yes: Non Tender, Flat, Increased Bowel Sounds Genitourinary: Yes: Within Normal Limits Musculoskeletal: Yes: full range of Motion, Gait Steady, Pelvis Stable Extremities: Yes: Normal Capillary Refill, Normal Inspection, Normal Range of Motion Neurological: Yes: certified corporate travel executive II-XII NML intact, Fully Oriented, Alert, Motor Strength 5/5, Normal Mood/Affect, Normal Response Integumentary: Yes: Normal Color, Warm Lymphatic: Yes: Within Normal Limits - Diagnostic (1) Alcohol dependence with uncomplicated withdrawal Current Visit: Yes Status: Acute (2) Anemia Current Visit: Yes Status: Acute (3) Cocaine dependence Current Visit: Yes Status: Acute Qualifiers: (4) HTN (hypertension), benign Current Visit: Yes Status: Acute (5) Insomnia Current Visit: Yes Status: Acute (6) Nicotine dependence Current Visit: Yes Status: Acute Qualifiers: Nicotine product type: cigarettes Substance use status: in withdrawal Qualified Code(s): F17.213 - Nicotine dependence, cigarettes, with withdrawal (7) GERD (gastroesophageal reflux disease) Current Visit: Yes Status: Chronic Qualifiers: Esophagitis presence: without esophagitis Qualified Code(s): K21.9 - Gastro -esophageal reflux disease without esophagitis (8) H/O unilateral nephrectomy Current Visit: Yes Status: Chronic (9) Seizure disorder Current Visit: Yes Status: Chronic (10) Positive PPD Current Visit: Yes Status: Resolved Cleared for Admission BHS - Detox or Rehab S Level of Care: Medically Managed Detox Regimen/Protocol: Not Applicable (ativan protocol) Claeared for Rehab Admission: No Screened but not Admitted - Documentation of Visit Screened but not Admitted: No Breathalyzer - Breathalyzer Breathalyzer: 0.216 Urine Drug Screen - Test Device Lot number: [id number] Expiration date: 10/14/20 - Control Is test valid?: Yes - Results Drug screen NEGATIVE: No Urine drug screen results: BZO-Benzodiazepines Inpatient Rehab Admission - Rehab Decision to Admit Inpatient rehab admission?: No
[2019-02-10] MEDS ORDERED: METHOCARBAMOL 500 MG TABLET PO PRN (11:38)
[2019-02-10] MEDS ORDERED: BISMUTH SUBSALICYLATE 262 MG/15 ML BTL PO PRN (11:38)
[2019-02-10] MEDS ORDERED: MAGNESIUM HYDROX 2400MG/30ML ORAL SUSPENSION 30 ML CUP PO PRN (11:38)
[2019-02-10] MEDS ORDERED: ACETAMINOPHEN 325 MG TABLET (FP) PO PRN ×2 (11:38)
[2019-02-10] MEDS ORDERED: MENTHOL/PHENOL 1 EACH UD MM PRN (11:38)
[2019-02-10] MEDS ORDERED: LORazepam 1 MG TABLET PO PRN (11:38)
[2019-02-10] MEDS ORDERED: MELATONIN 5 MG TABLETS PO PRN (11:38)
[2019-02-10] MEDS ORDERED: MAGNESIUM CITRATE 300 ML BOTTLE PO PRN (11:38)
[2019-02-10] MEDS: LORazepam 2 MG TABLET PO SCH ×3 (13:07→22:18)
[2019-02-10 15:09] LABS: HEMATOCRIT 33.9 % (35.4-49); MCH 31.6 pg (25.7-33.7); MCHC 32.4 g/dl (32.0-35.9); MEAN CELL VOLUME 97.5 fl (80-96); MEAN PLT VOLUME 6.8 fl (7.5-11.1); PLATELET COUNT 183 K/MM3 (134-434); RBC 3.48 M/mm3 (4.00-5.60); RDW 14.4 % (11.9-15.9); WHITE BLOOD COUNT 4.4 K/mm3 (4.0-10.0)
[2019-02-10 15:25] LABS: ALBUMIN 3.3 g/dl (3.4-5.0); BILIRUBIN,TOTAL 0.5 mg/dL (0.2-1); BLOOD UREA NITROGEN 11.4 mg/dL (7-18); CALCIUM 8.4 mg/dL (8.5-10.1); CREATININE 0.7 mg/dL (0.55-1.3); POTASSIUM 4.1 mmol/L (3.5-5.1); TOT PROT 6.6 g/dl (6.4-8.2)
[2019-02-10] MEDS: MAG HYDROX/AL HYDROX/SIMETH 30 ML UNIT-DOSE CUP PO PRN ×2 (17:02→22:19)
[2019-02-10] MEDS ORDERED: cloNIDine HCL 0.1 MG TABLET PO ONE (21:47)
--- NOTE | 2019-02-10 21:47 | PN ---
BHS Progress Note Note: Vital Signs - 24 hr 02/10/19 02/10/19 02/10/19 10:51 11:23 13:32 Temperature 97.3 F L 97.3 F L 97.9 F Pulse Rate 89 89 88 Respiratory 89 H 89 H 18 Rate Blood Pressure 170/95 170/95 165/95 02/10/19 02/10/19 17:25 20:21 Temperature 97.6 F 97.6 F Pulse Rate 108 H 84 Respiratory 18 18 Rate Blood Pressure 149/99 153/107 H clonidine 0.1 mg x once ordered .
[2019-02-10] MEDS: THIAMINE HCL 100 MG TABLET (FP) PO SCH (22:17)
[2019-02-11] MEDS: LORazepam 2 MG TABLET PO SCH ×4 (05:02→22:24)
[2019-02-11] MEDS: MAG HYDROX/AL HYDROX/SIMETH 30 ML UNIT-DOSE CUP PO PRN (05:04)
--- NOTE | 2019-02-11 09:14 | PN ---
BHS CIWA - CIWA Score Nausea/Vomitin Muscle Tremors: 3 Anxiety: 2 Agitation: 1-Slight > Activity Paroxysmal Sweats: 3 Orientation: 0-Oriented Tacttile Disturbances: 2-Mild Itch/Numbness/Burn Auditory Disturbances: 0-None Visual Disturbances: 0-None Headache: 2-Mild CIWA-Ar Total Score: 16 BHS Progress Note (SOAP) Subjective: interrupted sllep, sweats, shakes , headache Objective: 02/11/19 09:10 Vital Signs Temperature 97.5 F L 02/11/19 06:06 Pulse Rate 78 02/11/19 06:49 Respiratory Rate 16 02/11/19 06:06 Blood Pressure 159/93 02/11/19 06:49 O2 Sat by Pulse Oximetry (%) Laboratory Tests 02/10/19 02/10/19 11:30 11:30 WBC 4.4 RBC 3.48 L Hgb 11.0 L Hct 33.9 L MCV 97.5 H MCH 31.6 MCHC 32.4 RDW 14.4 Plt Count 183 D MPV 6.8 L Sodium 143 Potassium 4.1 Chloride 110 H Carbon Dioxide 22 Anion Gap 12 BUN 11.4 Creatinine 0.7 Est GFR (CKD-EPI)AfAm 117.22 Est GFR (CKD-EPI)NonAf 101.14 Random Glucose 87 Calcium 8.4 L Total Bilirubin 0.5 AST 76 H ALT 46 Alkaline Phosphatase 113 Total Protein 6.6 Albumin 3.3 L pt aox3 in nad sitting in chair , + tremors Assessment: 02/11/19 09:12 withdrawal sx;s htn Plan: cont. detox increase fluids clonidine 0.1mfg stat
[2019-02-11] MEDS: amLODIPine BESYLATE 10 MG TABLET (FP) PO SCH (09:28)
[2019-02-11] MEDS: PRENATAL VITAMINS W/ FOLIC ACID TABLET (FP) PO SCH (09:28)
[2019-02-11] MEDS ORDERED: cloNIDine HCL 0.1 MG TABLET PO ONE (09:30)
[2019-02-11] MEDS: NICOTINE 14 MG/24 HOURS TOPICAL PATCH TD SCH (10:18)
[2019-02-11] MEDS ORDERED: ENALAPRIL MALEATE 5 MG TABLET (FP) PO ONE (12:12)
[2019-02-11] MEDS: hydrOXYzine PAMOATE 25 MG CAPSULE (FP) PO PRN (13:49)
[2019-02-11] MEDS: THIAMINE HCL 100 MG TABLET (FP) PO SCH (22:24)
[2019-02-12] MEDS: LORazepam 1 MG TABLET PO SCH ×4 (06:07→22:19)
[2019-02-12] MEDS ORDERED: ENALAPRIL MALEATE 5 MG TABLET (FP) PO SCH (10:00)
[2019-02-12] MEDS: PRENATAL VITAMINS W/ FOLIC ACID TABLET (FP) PO SCH (10:27)
[2019-02-12] MEDS: amLODIPine BESYLATE 10 MG TABLET (FP) PO SCH (10:27)
[2019-02-12] MEDS: NICOTINE 14 MG/24 HOURS TOPICAL PATCH TD SCH (10:27)
--- NOTE | 2019-02-12 10:28 | PN ---
BHS CIWA - CIWA Score Nausea/Vomitin-No Nausea/No Vomiting Muscle Tremors: 2 Anxiety: 1-Mildly Anxious Agitation: 1-Slight > Activity Paroxysmal Sweats: 1-Minimal Palms Moist Orientation: 0-Oriented Tacttile Disturbances: 0-None Auditory Disturbances: 0-None Visual Disturbances: 0-None Headache: 0-None Present CIWA-Ar Total Score: 5 BHS Progress Note (SOAP) Subjective: sweats shakes headache Objective: 02/12/19 10:27 Vital Signs Temperature 98.9 F 02/12/19 09:46 Pulse Rate 97 H 02/12/19 09:46 Respiratory Rate 18 02/12/19 09:46 Blood Pressure 147/94 02/12/19 09:46 O2 Sat by Pulse Oximetry (%) Laboratory Tests 02/10/19 02/10/19 02/10/19 11:30 11:30 11:30 WBC 4.4 RBC 3.48 L Hgb 11.0 L Hct 33.9 L MCV 97.5 H MCH 31.6 MCHC 32.4 RDW 14.4 Plt Count 183 D MPV 6.8 L Sodium 143 Potassium 4.1 Chloride 110 H Carbon Dioxide 22 Anion Gap 12 BUN 11.4 Creatinine 0.7 Est GFR (CKD-EPI)AfAm 117.22 Est GFR (CKD-EPI)NonAf 101.14 Random Glucose 87 Calcium 8.4 L Total Bilirubin 0.5 AST 76 H ALT 46 Alkaline Phosphatase 113 Total Protein 6.6 Albumin 3.3 L RPR Titer Nonreactive labs noted aaox3 ambulating no acute distress Assessment: 02/12/19 10:27 withdrawals Plan: continue detox increase fluids tylenol/motrin prn
[2019-02-12] MEDS ORDERED: ENALAPRIL MALEATE 5 MG TABLET (FP) PO ONE (15:11)
[2019-02-12] MEDS: IBUPROFEN 400 MG TABLET (FP) PO PRN (17:52)
[2019-02-12] MEDS ORDERED: METOPROLOL TARTRATE 25 MG TABLET (FP) PO ONE (22:06)
--- NOTE | 2019-02-12 22:06 | PN ---
S Progress Note Note: Vital Signs - 24 hr 02/12/19 02/12/19 02/12/19 00:30 03:30 06:00 Temperature 97.3 F L Pulse Rate 72 Respiratory 18 18 18 Rate Blood Pressure 149/89 02/12/19 02/12/19 02/12/19 09:46 13:38 16:39 Temperature 98.9 F 97.9 F 98.4 F Pulse Rate 97 H 92 H 96 H Respiratory 18 18 18 Rate Blood Pressure 147/94 159/101 H 142/95 02/12/19 20:21 Temperature 97.4 F L Pulse Rate 97 H Respiratory 18 Rate Blood Pressure 174/101 H Metoprolol x one ordered .
[2019-02-12] MEDS: THIAMINE HCL 100 MG TABLET (FP) PO SCH (22:19)
[2019-02-13] MEDS ORDERED: LORazepam 0.5 MG TABLET PO PRN
[2019-02-13] MEDS: LORazepam 0.5 MG TABLET PO SCH ×2 (05:13→10:32)
[2019-02-13] MEDS: PRENATAL VITAMINS W/ FOLIC ACID TABLET (FP) PO SCH (10:32)
[2019-02-13] MEDS: ENALAPRIL MALEATE 10 MG TABLET (FP) PO SCH (10:32)
[2019-02-13] MEDS: amLODIPine BESYLATE 10 MG TABLET (FP) PO SCH (10:32)
[2019-02-13] MEDS: NICOTINE 14 MG/24 HOURS TOPICAL PATCH TD SCH (10:33)
[2019-02-13] MEDS ORDERED: diazePAM 5 MG TABLET PO PRN (11:26)
--- NOTE | 2019-02-13 11:31 | PN ---
S CIWA - CIWA Score Nausea/Vomitin-Mild Nausea/No Vomiting Muscle Tremors: 4-Moderate,w/Arms Extend Anxiety: 4-Mod. Anxious/Guarded Agitation: 4-Moderately Restless Paroxysmal Sweats: 1-Minimal Palms Moist Orientation: 0-Oriented Tacttile Disturbances: 0-None Auditory Disturbances: 0-None Visual Disturbances: 0-None Headache: 0-None Present CIWA-Ar Total Score: 14 BHS Progress Note (SOAP) Subjective: pt states he feels like he is in withdrawal. Ativan not working for him. Wants to leave. O: Vital Signs - 24 hr 02/12/19 02/12/19 02/12/19 13:38 16:39 20:21 Temperature 97.9 F 98.4 F 97.4 F L Pulse Rate 92 H 96 H 97 H Respiratory 18 18 18 Rate Blood Pressure 159/101 H 142/95 174/101 H 02/13/19 02/13/19 02/13/19 00:30 03:30 06:00 Temperature 97.9 F Pulse Rate 74 Respiratory 18 18 16 Rate Blood Pressure 149/88 02/13/19 09:45 Temperature 97.7 F Pulse Rate 75 Respiratory 18 Rate Blood Pressure 150/86 tremulous, shaky a/o AUD- will change from Ativan to Valium- starting this afternoon, prn valium 10mg d/c on Friday
[2019-02-13] MEDS: diazePAM 5 MG TABLET PO SCH ×2 (14:13→22:21)
[2019-02-13] MEDS: MAG HYDROX/AL HYDROX/SIMETH 30 ML UNIT-DOSE CUP PO PRN (18:00)
[2019-02-13] MEDS: IBUPROFEN 400 MG TABLET (FP) PO PRN (18:00)
[2019-02-13] MEDS: THIAMINE HCL 100 MG TABLET (FP) PO SCH (22:21)
[2019-02-13] MEDS: hydrOXYzine PAMOATE 25 MG CAPSULE (FP) PO PRN (22:24)
[2019-02-14] MEDS ORDERED: LORazepam 0.5 MG TABLET PO ONE (05:00)
[2019-02-14] MEDS: diazePAM 5 MG TABLET PO SCH (05:35)
--- NOTE | 2019-02-14 09:03 | DS ---
[facility] Detox Discharge Summary Admission Date: 02/10/19 Discharge Date: 02/14/19 - History Present History: Alcohol Dependence, Cocaine Dependence - Physical Exam Results Vital Signs: Vital Signs Temperature 97.7 F 02/14/19 06:00 Pulse Rate 65 02/14/19 06:05 Respiratory Rate 18 02/14/19 06:05 Blood Pressure 159/91 02/14/19 06:05 O2 Sat by Pulse Oximetry (%) Pertinent Admission Physical Exam Findings: pt arrived in withdrawals Vital Signs Temperature 97.7 F 02/14/19 06:00 Pulse Rate 65 02/14/19 06:05 Respiratory Rate 18 02/14/19 06:05 Blood Pressure 159/91 02/14/19 06:05 O2 Sat by Pulse Oximetry (%) Laboratory Tests 02/10/19 02/10/19 02/10/19 11:30 11:30 11:30 WBC 4.4 RBC 3.48 L Hgb 11.0 L Hct 33.9 L MCV 97.5 H MCH 31.6 MCHC 32.4 RDW 14.4 Plt Count 183 D MPV 6.8 L Sodium 143 Potassium 4.1 Chloride 110 H Carbon Dioxide 22 Anion Gap 12 BUN 11.4 Creatinine 0.7 Est GFR (CKD-EPI)AfAm 117.22 Est GFR (CKD-EPI)NonAf 101.14 Random Glucose 87 Calcium 8.4 L Total Bilirubin 0.5 AST 76 H ALT 46 Alkaline Phosphatase 113 Total Protein 6.6 Albumin 3.3 L RPR Titer Nonreactive aaox3 ambulating no acute distress no s/s of withdrawals - Treatment Hospital Course: Detox Protocol Followed, Detoxed Safely, Responded well, Discharged Condition Good, Rehab Referral Accepted Patient has Accepted a Rehab Referral to: pt referred to [facility] - Medication Discharge Medications: Ambulatory Orders Amlodipine Besylate [Norvasc -] 10 mg PO DAILY #30 tablet 02/13/19 - Diagnosis (1) Alcohol dependence with uncomplicated withdrawal Current Visit: Yes Status: Chronic (2) Anemia Current Visit: Yes Status: Acute (3) Cocaine dependence Current Visit: Yes Status: Chronic Qualifiers: Substance use status: uncomplicated (4) HTN (hypertension), benign Current Visit: Yes Status: Acute (5) Insomnia Current Visit: Yes Status: Acute (6) Nicotine dependence Current Visit: Yes Status: Acute Qualifiers: Nicotine product type: cigarettes Substance use status: in withdrawal Qualified Code(s): F17.213 - Nicotine dependence, cigarettes, with withdrawal (7) GERD (gastroesophageal reflux disease) Current Visit: Yes Status: Chronic Qualifiers: Esophagitis presence: without esophagitis Qualified Code(s): K21.9 - Gastro -esophageal reflux disease without esophagitis (8) H/O unilateral nephrectomy Current Visit: Yes Status: Chronic (9) Seizure disorder Current Visit: Yes Status: Chronic (10) Positive PPD Current Visit: Yes Status: Resolved (11) Alcohol dependence Current Visit: Yes Status: Chronic Qualifiers: Substance use status: uncomplicated Qualified Code(s): F10.20 - Alcohol dependence, uncomplicated (12) Glaucoma Current Visit: No Status: Chronic Qualifiers: Glaucoma type: unspecified Laterality: bilateral Qualified Code(s): H40.9 - Unspecified glaucoma - AMA Did Patient Leave Against Medical Advice: No
[2019-02-14 09:29] VITALS: BP 131/93; PULSE 95; TEMP 97.9
[2019-02-14] MEDS: ENALAPRIL MALEATE 10 MG TABLET (FP) PO SCH (10:12)
[2019-02-14] MEDS: amLODIPine BESYLATE 10 MG TABLET (FP) PO SCH (10:13)
[2019-02-14] MEDS: NICOTINE 14 MG/24 HOURS TOPICAL PATCH TD SCH (10:13)
[2019-02-14] MEDS: PRENATAL VITAMINS W/ FOLIC ACID TABLET (FP) PO SCH (10:13)
== END 2019-02-14 10:35 | disposition home or self-care (01) | DRG 774 ==
LOC: YASAS 09:29 → Y6N 12:07
PROVIDERS: ADMIT Allergy & Immunology; ATTEND Allergy & Immunology
PROC: HZ2ZZZZ Detoxification Services for Substance Abuse Treatment (ICD-10-PCS; principal; 2019-02-10)
DX: F10.230 Alcohol dependence with withdrawal, uncomplicated (principal); F14.20 Cocaine dependence, uncomplicated; F17.213 Nicotine dependence, cigarettes, with withdrawal; D64.9 Anemia, unspecified; G40.909 Epilepsy, unspecified, not intractable, without status epilepticus; H40.9 Unspecified glaucoma; I10 Essential (primary) hypertension; G47.00 Insomnia, unspecified; K21.9 Gastro-esophageal reflux disease without esophagitis; R76.11 Nonspecific reaction to tuberculin skin test without active tuberculosis; Z90.5 Acquired absence of kidney
CPT/HCPCS: 36415; 71046-TC-FY; 80053; 85027; 86593; J0735

== ENCOUNTER 2019-05-04 10:59 | Inpatient (IN) | payer OTHER ==
--- NOTE | 2019-05-04 11:26 | BHS.RME ---
Substance Use & Tx History - Substance Use History Alcohol Substance amount: 3 pints vodka Frequency of use: Daily Substance route: Oral Date of Last Use: 05/04/19 Cocaine (Powder) Substance amount: 3-4 bags Frequency of use: Daily Substance route: Smoking Date of Last Use: 05/04/19 Nicotine Substance amount: 1 pack Frequency of use: Daily Substance route: Smoking Date of Last Use: 05/04/19 Physical/Psych/Mental Status - Behavior General Behavior: Increased activity (restlessness, agitation) Eye Contact: Normal - Cooperativeness Cooperativeness: Cooperative - Thinking Thought Processes: Tight, Logical, Goal Directed Thought content: Future oriented Perceptions: Hallucinations (auditory, visual, olfactory) (thinks someone is following him) - Physical Health Problems Is patient presently having any pain?: No Does patient presently have any injuries (include location): No Does patient currently have a fever: No Is patient : No CIWA Nausea/Vomitin Muscle Tremors: 4-Moderate,w/Arms Extend Anxiety: 2 Agitation: 1-Slight > Activity Paroxysmal Sweats: 4-Forehead w/Sweat Beads Orientation: 3-Disoriented Date>2 days Tacttile Disturbances: 3-Moderate Itch/Numb/Burn Auditory Disturbances: 0-None Visual Disturbances: 0-None Headache: 3-Moderate CIWA-Ar Total Score: 25
[2019-05-04 12:27] VITALS: BMI 20.5
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
[2019-05-04] MEDS ORDERED: chlordiazePOXIDE HCL 25 MG CAPSULE PO PRN (13:42)
[2019-05-04] MEDS ORDERED: ACETAMINOPHEN 325 MG TABLET (FP) PO PRN (13:42)
[2019-05-04] MEDS ORDERED: BISMUTH SUBSALICYLATE 262 MG/15 ML BTL PO PRN (13:42)
[2019-05-04] MEDS ORDERED: IBUPROFEN 400 MG TABLET (FP) PO PRN (13:42)
[2019-05-04] MEDS ORDERED: MAGNESIUM HYDROX 2400MG/30ML ORAL SUSPENSION 30 ML CUP PO PRN (13:42)
[2019-05-04] MEDS ORDERED: MAGNESIUM CITRATE 300 ML BOTTLE PO PRN (13:42)
[2019-05-04] MEDS ORDERED: MENTHOL/PHENOL 1 EACH UD MM PRN (13:42)
[2019-05-04] MEDS ORDERED: METHOCARBAMOL 500 MG TABLET PO PRN (13:42)
[2019-05-04] MEDS ORDERED: hydrOXYzine PAMOATE 25 MG CAPSULE (FP) PO PRN (13:42)
[2019-05-04] MEDS ORDERED: MELATONIN 5 MG TABLETS PO PRN (13:42)
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
[2019-05-04] MEDS: NICOTINE 21 MG/24 HOURS TOPICAL PATCH TD SCH (15:05)
[2019-05-04] MEDS: amLODIPine BESYLATE 10 MG TABLET (FP) PO SCH (15:11)
[2019-05-04] MEDS: TAMSULOSIN HCL 0.4 MG CAP PO SCH (15:11)
[2019-05-04] MEDS: levETIRAcetam 500 MG TABLET (FP) PO SCH ×2 (15:11→22:31)
[2019-05-04] MEDS: PANTOPRAZOLE 20 MG TABLET PO SCH (15:11)
[2019-05-04] MEDS: FOLIC ACID 1 MG TABLET (FP) PO SCH (15:22)
--- NOTE | 2019-05-04 16:28 | EKG ---
Test Reason : Blood Pressure : / mmHG Vent. Rate : 070 BPM Atrial Rate : 070 BPM P-R Int : 162 ms QRS Dur : 100 ms QT Int : 438 ms P-R-T Axes : 070 094 048 degrees QTc Int : 473 ms NORMAL SINUS RHYTHM RIGHTWARD AXIS LEFT VENTRICULAR HYPERTROPHY ABNORMAL ECG Confirmed by MD ARCADIO, BRIGITTE ([id number]) on 05/04/2019 4:28:40 PM Referred By: ARIS Confirmed By:BRIGITTE ERVIN MD
[2019-05-04] MEDS: chlordiazePOXIDE HCL 25 MG CAPSULE PO SCH ×2 (17:24→22:31)
[2019-05-04] MEDS: MAG HYDROX/AL HYDROX/SIMETH 30 ML UNIT-DOSE CUP PO PRN (17:24)
[2019-05-04 17:40] LABS: BILIRUBIN,TOTAL 0.2 mg/dL (0.2-1); BLOOD UREA NITROGEN 14.2 mg/dL (7-18); CALCIUM 8.2 mg/dL (8.5-10.1); CREATININE 0.8 mg/dL (0.55-1.3); POTASSIUM 3.9 mmol/L (3.5-5.1); TOT PROT 6.4 g/dl (6.4-8.2)
[2019-05-04 17:42] LABS: HEMATOCRIT 30.8 % (35.4-49); MCHC 32.5 g/dl (32.0-35.9); MEAN CELL VOLUME 95.3 fl (80-96); MEAN PLT VOLUME 6.8 fl (7.5-11.1); PLATELET COUNT 235 K/MM3 (134-434); RBC 3.23 M/mm3 (4.00-5.60); RDW 15.5 % (11.9-15.9); WHITE BLOOD COUNT 2.9 K/mm3 (4.0-10.0)
[2019-05-04] MEDS ORDERED: SUVOREXANT 10 MG TABLET PO PRN (22:00)
[2019-05-04] MEDS ORDERED: THIAMINE HCL 100 MG TABLET (FP) PO SCH (22:00)
[2019-05-04] MEDS: THIAMINE HCL 100 MG TABLET (FP) PO SCH (22:31)
[2019-05-05] MEDS: chlordiazePOXIDE HCL 25 MG CAPSULE PO SCH ×4 (05:45→22:04)
[2019-05-05] MEDS: MAG HYDROX/AL HYDROX/SIMETH 30 ML UNIT-DOSE CUP PO PRN ×2 (05:49→17:24)
--- NOTE | 2019-05-05 09:37 | PN ---
Teaching Attending Note Name of Resident: Bradford Ho ATTENDING PHYSICIAN STATEMENT I saw and evaluated the patient. I reviewed the resident's note and discussed the case with the resident. I agree with the resident's findings and plan as documented. SUBJECTIVE: Agree with subjective resident findings OBJECTIVE: Agree with objective resident findings ASSESSMENT AND PLAN: Agree with plan to admit patient to detox.
[2019-05-05] MEDS: PANTOPRAZOLE 20 MG TABLET PO SCH (10:42)
[2019-05-05] MEDS: TAMSULOSIN HCL 0.4 MG CAP PO SCH (10:42)
[2019-05-05] MEDS: PRENATAL VITAMINS W/ FOLIC ACID TABLET (FP) PO SCH (10:42)
[2019-05-05] MEDS: levETIRAcetam 500 MG TABLET (FP) PO SCH ×2 (10:42→22:03)
[2019-05-05] MEDS: FOLIC ACID 1 MG TABLET (FP) PO SCH (10:42)
[2019-05-05] MEDS: NICOTINE 21 MG/24 HOURS TOPICAL PATCH TD SCH (10:42)
[2019-05-05] MEDS: amLODIPine BESYLATE 10 MG TABLET (FP) PO SCH (10:42)
--- NOTE | 2019-05-05 11:21 | PN ---
S CIWA - CIWA Score Nausea/Vomitin Muscle Tremors: 2 Anxiety: 2 Agitation: 2 Paroxysmal Sweats: No Perspiration Orientation: 0-Oriented Tacttile Disturbances: 1-Very Mild Itch/Numbness Auditory Disturbances: 0-None Visual Disturbances: 0-None Headache: 1-Very Mild CIWA-Ar Total Score: 10 S Progress Note (SOAP) Subjective: alert,irritable,anxious,interrupted sleep,tremor Objective: 05/05/19 11:19 Vital Signs Temperature 98.2 F 05/05/19 09:29 Pulse Rate 97 H 05/05/19 09:29 Respiratory Rate 05/05/19 09:29 Blood Pressure 146/93 05/05/19 09:29 O2 Sat by Pulse Oximetry (%) 05/05/19 11:20 Laboratory Last Values WBC 2.9 K/mm3 (4.0-10.0) L 05/04/19 14:00 RBC 3.23 M/mm3 (4.00-5.60) L 05/04/19 14:00 Hgb 10.0 GM/dL (11.7-16.9) L 05/04/19 14:00 Hct 30.8 % (35.4-49) L 05/04/19 14:00 MCV 95.3 fl (80-96) 05/04/19 14:00 MCH 31.0 pg (25.7-33.7) 05/04/19 14:00 MCHC 32.5 g/dl (32.0-35.9) 05/04/19 14:00 RDW 15.5 % (11.9-15.9) 05/04/19 14:00 Plt Count 235 K/MM3 (134-434) D 05/04/19 14:00 MPV 6.8 fl (7.5-11.1) L 05/04/19 14:00 Sodium 144 mmol/L (136-145) 05/04/19 14:00 Potassium 3.9 mmol/L (3.5-5.1) 05/04/19 14:00 Chloride 111 mmol/L (98-107) H 05/04/19 14:00 Carbon Dioxide 24 mmol/L (21-32) 05/04/19 14:00 Anion Gap 9 MMOL/L (8-16) 05/04/19 14:00 BUN 14.2 mg/dL (7-18) 05/04/19 14:00 Creatinine 0.8 mg/dL (0.55-1.3) 05/04/19 14:00 Est GFR (CKD-EPI)AfAm 110.96 05/04/19 14:00 Est GFR (CKD-EPI)NonAf 95.74 05/04/19 14:00 Random Glucose 107 mg/dL (74-106) H 05/04/19 14:00 Calcium 8.2 mg/dL (8.5-10.1) L 05/04/19 14:00 Total Bilirubin 0.2 mg/dL (0.2-1) 05/04/19 14:00 AST 73 U/L (15-37) H 05/04/19 14:00 ALT 40 U/L (13-61) 05/04/19 14:00 Alkaline Phosphatase 99 U/L (45-117) 05/04/19 14:00 Total Protein 6.4 g/dl (6.4-8.2) 05/04/19 14:00 Albumin 3.0 g/dl (3.4-5.0) L 05/04/19 14:00 RPR Titer Nonreactive (NONREACTIVE) 05/04/19 14:00 Assessment: 05/05/19 11:20 withdrawal symptom Plan: continue detox librium regimen,leukopenia probably from alcoholism
[2019-05-05] MEDS: ACETAMINOPHEN 325 MG TABLET (FP) PO PRN (12:22)
[2019-05-05] MEDS: THIAMINE HCL 100 MG TABLET (FP) PO SCH (22:03)
[2019-05-05] MEDS: SUVOREXANT 10 MG TABLET PO PRN (22:05)
[2019-05-06] MEDS: ACETAMINOPHEN 325 MG TABLET (FP) PO PRN (05:57)
[2019-05-06] MEDS: chlordiazePOXIDE HCL 25 MG CAPSULE PO SCH ×4 (05:59→22:24)
--- NOTE | 2019-05-06 10:15 | PN ---
S CIWA - CIWA Score Nausea/Vomitin Muscle Tremors: 1-None Visible, but [place] Anxiety: 2 Agitation: 2 Paroxysmal Sweats: No Perspiration Orientation: 0-Oriented Tacttile Disturbances: 0-None Auditory Disturbances: 0-None Visual Disturbances: 0-None Headache: 1-Very Mild CIWA-Ar Total Score: 8 [facility] Progress Note (SOAP) Subjective: alert,irritable,anxious,interrupted sleep,pain in the body Objective: 05/06/19 10:13 Vital Signs Temperature 97.3 F L 05/06/19 05:25 Pulse Rate 71 05/06/19 05:25 Respiratory Rate 18 05/06/19 05:25 Blood Pressure 141/84 05/06/19 05:25 O2 Sat by Pulse Oximetry (%) Assessment: 05/06/19 10:14 withdrawal symptom Plan: continue detox librium regimen
[2019-05-06] MEDS: PANTOPRAZOLE 20 MG TABLET PO SCH (10:57)
[2019-05-06] MEDS: PRENATAL VITAMINS W/ FOLIC ACID TABLET (FP) PO SCH (10:57)
[2019-05-06] MEDS: TAMSULOSIN HCL 0.4 MG CAP PO SCH (10:57)
[2019-05-06] MEDS: levETIRAcetam 500 MG TABLET (FP) PO SCH ×2 (10:57→22:24)
[2019-05-06] MEDS: NICOTINE 21 MG/24 HOURS TOPICAL PATCH TD SCH (10:58)
[2019-05-06] MEDS: FOLIC ACID 1 MG TABLET (FP) PO SCH (10:58)
[2019-05-06] MEDS: amLODIPine BESYLATE 10 MG TABLET (FP) PO SCH (10:58)
[2019-05-06] MEDS: THIAMINE HCL 100 MG TABLET (FP) PO SCH (22:24)
[2019-05-06] MEDS: SUVOREXANT 10 MG TABLET PO PRN (22:27)
[2019-05-07] MEDS ORDERED: chlordiazePOXIDE HCL 10 MG CAPSULE PO PRN
[2019-05-07] MEDS: chlordiazePOXIDE HCL 10 MG CAPSULE PO SCH ×4 (06:07→22:20)
--- NOTE | 2019-05-07 08:58 | PN ---
S CIWA - CIWA Score Nausea/Vomitin-Mild Nausea/No Vomiting Muscle Tremors: 1-None Visible, but [place] Anxiety: 2 Agitation: 1-Slight > Activity Paroxysmal Sweats: No Perspiration Orientation: 0-Oriented Tacttile Disturbances: 0-None Auditory Disturbances: 0-None Visual Disturbances: 0-None Headache: 1-Very Mild CIWA-Ar Total Score: 6 B[facility] Progress Note (SOAP) Subjective: alert,irritable,anxious,interrupted sleep,pain in the body Objective: 05/07/19 08:57 Vital Signs Temperature 97.7 F 05/07/19 06:22 Pulse Rate 67 05/07/19 06:22 Respiratory Rate 16 05/07/19 06:22 Blood Pressure 142/86 05/07/19 06:22 O2 Sat by Pulse Oximetry (%) Assessment: 05/07/19 08:57 withdrawal symptom Plan: continue detox librium regimen
[2019-05-07] MEDS: TAMSULOSIN HCL 0.4 MG CAP PO SCH (09:04)
[2019-05-07] MEDS: levETIRAcetam 500 MG TABLET (FP) PO SCH ×2 (10:09→22:20)
[2019-05-07] MEDS: amLODIPine BESYLATE 10 MG TABLET (FP) PO SCH (10:09)
[2019-05-07] MEDS: PRENATAL VITAMINS W/ FOLIC ACID TABLET (FP) PO SCH (10:09)
[2019-05-07] MEDS: PANTOPRAZOLE 20 MG TABLET PO SCH (10:09)
[2019-05-07] MEDS: NICOTINE 21 MG/24 HOURS TOPICAL PATCH TD SCH (10:09)
[2019-05-07] MEDS: FOLIC ACID 1 MG TABLET (FP) PO SCH (10:22)
[2019-05-07] MEDS ORDERED: NICOTINE POLACRILEX 2 MG GUM BUC PRN (11:20)
[2019-05-07] MEDS: THIAMINE HCL 100 MG TABLET (FP) PO SCH (22:20)
[2019-05-07] MEDS: ACETAMINOPHEN 325 MG TABLET (FP) PO PRN (22:22)
[2019-05-08] MEDS: chlordiazePOXIDE HCL 10 MG CAPSULE PO SCH ×2 (06:07→17:48)
[2019-05-08] MEDS: TAMSULOSIN HCL 0.4 MG CAP PO SCH (09:30)
[2019-05-08] MEDS: levETIRAcetam 500 MG TABLET (FP) PO SCH ×2 (10:44→21:41)
[2019-05-08] MEDS: FOLIC ACID 1 MG TABLET (FP) PO SCH (10:44)
[2019-05-08] MEDS: NICOTINE 21 MG/24 HOURS TOPICAL PATCH TD SCH (10:44)
[2019-05-08] MEDS: PRENATAL VITAMINS W/ FOLIC ACID TABLET (FP) PO SCH (10:44)
[2019-05-08] MEDS: amLODIPine BESYLATE 10 MG TABLET (FP) PO SCH (10:44)
[2019-05-08] MEDS: PANTOPRAZOLE 20 MG TABLET PO SCH (10:45)
[2019-05-08] MEDS ORDERED: ONDANSETRON *ODT* 4 MG TABLET SL PRN (13:16)
--- NOTE | 2019-05-08 14:31 | PN ---
S CIWA - CIWA Score Nausea/Vomitin Muscle Tremors: None Anxiety: 2 Agitation: 0-Normal Activity Paroxysmal Sweats: No Perspiration Orientation: 2-Disoriented Date<2 days Tacttile Disturbances: 0-None Auditory Disturbances: 0-None Visual Disturbances: 0-None Headache: 2-Mild CIWA-Ar Total Score: 9 B[facility] Progress Note (SOAP) Subjective: Nausea, Poor Appetite, Stomach Cramping, H/A. Objective: PATIENT A & O X 2 (UNCERTAIN ABOUT CURRENT DAY/ DATE). PATIENT OBSERVED AMBULATING ON DETOX UNIT UNASSISTED. IN NO ACUTE DISTRESS. 05/08/19 14:27 Vital Signs Temperature 96.6 F L 05/08/19 08:41 Pulse Rate 85 05/08/19 08:41 Respiratory Rate 17 05/08/19 08:41 Blood Pressure 124/85 05/08/19 08:41 O2 Sat by Pulse Oximetry (%) Laboratory Tests 05/04/19 05/04/19 05/04/19 14:00 14:00 14:00 WBC 2.9 L RBC 3.23 L Hgb 10.0 L Hct 30.8 L MCV 95.3 MCH 31.0 MCHC 32.5 RDW 15.5 Plt Count 235 D MPV 6.8 L Sodium 144 Potassium 3.9 Chloride 111 H Carbon Dioxide 24 Anion Gap 9 BUN 14.2 Creatinine 0.8 Est GFR (CKD-EPI)AfAm 110.96 Est GFR (CKD-EPI)NonAf 95.74 Random Glucose 107 H Calcium 8.2 L Total Bilirubin 0.2 AST 73 H ALT 40 Alkaline Phosphatase 99 Total Protein 6.4 Albumin 3.0 L RPR Titer Nonreactive LABS NOTED. PATIENT HAS BEEN ANEMIC AND HAS HAD ELEVATED AST LEVELS ON PREVIOUS ADMISSIONS. 05/08/19 14:29 Assessment: 05/08/19 14:29 WITHDRAWAL SYMPTOMS. ANEMIA. Plan: CONTINUE DETOX. ENSURE ORAL FOR CALORIC SUPPLEMENTATION. PRN ZOFRAN SL FOR NAUSEA. INCREASE DAILY ORAL WATER INTAKE. PATIENT SCHEDULED FOR DISCHARGE FROM DETOX UNIT TOMORROW.
[2019-05-08] MEDS: ACETAMINOPHEN 325 MG TABLET (FP) PO PRN (17:49)
[2019-05-08] MEDS: THIAMINE HCL 100 MG TABLET (FP) PO SCH (21:42)
[2019-05-09] MEDS ORDERED: chlordiazePOXIDE HCL 10 MG CAPSULE PO ONE (05:00)
[2019-05-09 09:48] VITALS: BP 142/92; PULSE 84; TEMP 97
--- NOTE | 2019-05-09 13:22 | DS ---
[facility] Detox Discharge Summary Admission Date: 05/04/19 Discharge Date: 05/09/19 - History Present History: Alcohol Dependence, Cocaine Dependence Additional Comments: Patient completed detox successfully and discharged safely. Patient instructed to see his PCP within 1-2 weeks. Pertinent Past History: HTN GERD - Physical Exam Results Vital Signs: Vital Signs Temperature 97.0 F L 05/09/19 08:35 Pulse Rate 84 05/09/19 08:35 Respiratory Rate 18 05/09/19 08:35 Blood Pressure 142/92 05/09/19 08:35 O2 Sat by Pulse Oximetry (%) Pertinent Admission Physical Exam Findings: Withdrawal sxs Laboratory Tests 05/04/19 05/04/19 05/04/19 14:00 14:00 14:00 WBC 2.9 L RBC 3.23 L Hgb 10.0 L Hct 30.8 L MCV 95.3 MCH 31.0 MCHC 32.5 RDW 15.5 Plt Count 235 D MPV 6.8 L Sodium 144 Potassium 3.9 Chloride 111 H Carbon Dioxide 24 Anion Gap 9 BUN 14.2 Creatinine 0.8 Est GFR (CKD-EPI)AfAm 110.96 Est GFR (CKD-EPI)NonAf 95.74 Random Glucose 107 H Calcium 8.2 L Total Bilirubin 0.2 AST 73 H ALT 40 Alkaline Phosphatase 99 Total Protein 6.4 Albumin 3.0 L RPR Titer Nonreactive Labs reviewed: anemia noted (mild) and mild transaminitis (most likely due to alcoholism), follow up with PCP for further evaluation of abnormal labs - Treatment Hospital Course: Detox Protocol Followed, Detoxed Safely, Responded well, Discharged Condition Good - Medication Discharge Medications: Ambulatory Orders Amlodipine Besylate [Norvasc -] 10 mg PO DAILY #30 tablet 02/13/19 Folic Acid - 1 mg PO DAILY 05/04/19 Pantoprazole Sodium [Protonix -] 20 mg PO DAILY 05/04/19 Tamsulosin HCl [Flomax] 0.4 mg PO DAILY 05/04/19 Thiamine HCl [B-1] 100 mg PO HS 05/04/19 levETIRAcetam [Keppra -] 500 mg PO BID 05/04/19 - Diagnosis (1) Transaminitis Status: Acute (2) Alcohol dependence with uncomplicated withdrawal Status: Acute (3) Anemia Status: Acute (4) Cocaine dependence Status: Acute Qualifiers: Substance use status: uncomplicated Qualified Code(s): F14.20 - Cocaine dependence, uncomplicated (5) HTN (hypertension), benign Status: Acute (6) GERD (gastroesophageal reflux disease) Status: Chronic Qualifiers: Esophagitis presence: without esophagitis Qualified Code(s): K21.9 - Gastro -esophageal reflux disease without esophagitis (7) Nicotine dependence Status: Chronic Qualifiers: Nicotine product type: cigarettes Substance use status: in withdrawal Qualified Code(s): F17.213 - Nicotine dependence, cigarettes, with withdrawal - AMA Did Patient Leave Against Medical Advice: No (Follow up with PCP within 1-2 weeks)
== END 2019-05-09 09:00 | disposition home or self-care (01) | DRG 774 ==
LOC: YASAS 10:59 → Y6N 13:49
PROVIDERS: ADMIT Allergy & Immunology; ATTEND Allergy & Immunology
PROC: HZ2ZZZZ Detoxification Services for Substance Abuse Treatment (ICD-10-PCS; principal; 2019-05-04)
DX: F10.230 Alcohol dependence with withdrawal, uncomplicated (principal); F14.20 Cocaine dependence, uncomplicated; F17.210 Nicotine dependence, cigarettes, uncomplicated; F19.282 Other psychoactive substance dependence with psychoactive substance-induced sleep disorder; F19.24 Other psychoactive substance dependence with psychoactive substance-induced mood disorder; F31.9 Bipolar disorder, unspecified; I10 Essential (primary) hypertension; K21.9 Gastro-esophageal reflux disease without esophagitis; H40.9 Unspecified glaucoma; D64.9 Anemia, unspecified; R74.0 Nonspecific elevation of levels of transaminase and lactic acid dehydrogenase [LDH]; R56.1 Post traumatic seizures; N40.0 Benign prostatic hyperplasia without lower urinary tract symptoms; Z90.5 Acquired absence of kidney; R29.6 Repeated falls; R76.11 Nonspecific reaction to tuberculin skin test without active tuberculosis
CPT/HCPCS: 36415; 80053; 80177; 85027; 86593; 93005; 93010

== ENCOUNTER 2019-10-10 09:19 | Inpatient (IN) | payer OTHER ==
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
[2019-10-10] MEDS ORDERED: MAGNESIUM CITRATE 300 ML BOTTLE PO PRN (10:22)
[2019-10-10] MEDS ORDERED: MAGNESIUM HYDROX 2400MG/30ML ORAL SUSPENSION 30 ML CUP PO PRN (10:22)
[2019-10-10] MEDS ORDERED: BISMUTH SUBSALICYLATE 524 MG/30 ML UD PO PRN (10:22)
[2019-10-10] MEDS ORDERED: ONDANSETRON *ODT* 4 MG TABLET SL ONE (10:22)
[2019-10-10] MEDS ORDERED: NICOTINE POLACRILEX 2 MG GUM BUC PRN (10:22)
[2019-10-10] MEDS ORDERED: IBUPROFEN 400 MG TABLET (FP) PO PRN (10:22)
[2019-10-10] MEDS ORDERED: LORazepam 1 MG TABLET PO PRN (10:22)
[2019-10-10] MEDS ORDERED: ACETAMINOPHEN 325 MG TABLET (FP) PO PRN ×2 (10:22)
[2019-10-10] MEDS ORDERED: MENTHOL/PHENOL 1 EACH UD MM PRN (10:22)
[2019-10-10] MEDS ORDERED: METHOCARBAMOL 500 MG TABLET PO PRN (10:22)
[2019-10-10] MEDS ORDERED: MAG HYDROX/AL HYDROX/SIMETH 30 ML UNIT-DOSE CUP PO PRN (10:22)
[2019-10-10 10:38] VITALS: BMI 19.1
[2019-10-10] MEDS: LORazepam 2 MG TABLET PO SCH ×3 (11:26→22:08)
[2019-10-10] MEDS: LISINOPRIL 10 MG TABLET (FP) PO SCH (11:26)
[2019-10-10] MEDS: PANTOPRAZOLE 20 MG TABLET PO SCH (11:27)
[2019-10-10] MEDS: TAMSULOSIN HCL 0.4 MG CAP PO SCH (11:27)
[2019-10-10] MEDS: amLODIPine BESYLATE 10 MG TABLET (FP) PO SCH (11:29)
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
[2019-10-10] MEDS: hydrOXYzine PAMOATE 25 MG CAPSULE (FP) PO PRN ×2 (16:46→20:36)
[2019-10-10] MEDS ORDERED: SUVOREXANT 10 MG TABLET PO PRN (22:00)
[2019-10-10] MEDS ORDERED: MELATONIN 5 MG TABLETS PO SCH (22:00)
[2019-10-10] MEDS: levETIRAcetam 500 MG TABLET (FP) PO SCH (22:07)
[2019-10-10] MEDS: THIAMINE HCL 100 MG TABLET (FP) PO SCH (22:07)
[2019-10-11] MEDS: LORazepam 2 MG TABLET PO SCH ×4 (06:03→22:07)
[2019-10-11] MEDS ORDERED: PRENATAL VITAMINS W/ FOLIC ACID TABLET (FP) PO SCH (10:00)
[2019-10-11] MEDS ORDERED: NICOTINE 7 MG/24 HOURS TOPICAL PATCH TD SCH (10:00)
--- NOTE | 2019-10-11 10:00 | PN ---
S CIWA - CIWA Score Nausea/Vomitin-Mild Nausea/No Vomiting Muscle Tremors: 2 Anxiety: 2 Agitation: 2 Paroxysmal Sweats: No Perspiration Orientation: 0-Oriented Tacttile Disturbances: 1-Very Mild Itch/Numbness Auditory Disturbances: 0-None Visual Disturbances: 0-None Headache: 2-Mild CIWA-Ar Total Score: 10 S Progress Note (SOAP) Subjective: alert,irritable,anxious,interrupted sleep,tremor,right wrist on splint support ,using cane for ambulation for 2 months Objective: 10/11/19 09:59 Vital Signs Temperature 98.0 F 10/11/19 09:04 Pulse Rate 88 10/11/19 09:04 Respiratory Rate 18 10/11/19 09:04 Blood Pressure 149/89 10/11/19 09:04 O2 Sat by Pulse Oximetry (%) 98 10/11/19 05:12 10/11/19 09:59 labs pending Assessment: 10/11/19 09:59 withdrawal symptom Plan: continue detox librium regimen,seizure precaution,fall precaution
--- NOTE | 2019-10-11 10:03 | PN ---
[facility] Progress Note Note: addendum correction detox regimen is ativan not librium
[2019-10-11] MEDS: LISINOPRIL 10 MG TABLET (FP) PO SCH (10:21)
[2019-10-11] MEDS: TAMSULOSIN HCL 0.4 MG CAP PO SCH (10:21)
[2019-10-11] MEDS: PANTOPRAZOLE 20 MG TABLET PO SCH (10:21)
[2019-10-11] MEDS: amLODIPine BESYLATE 10 MG TABLET (FP) PO SCH (10:21)
[2019-10-11] MEDS: levETIRAcetam 500 MG TABLET (FP) PO SCH ×2 (10:23→22:07)
[2019-10-11 11:51] LABS: HEMATOCRIT 27.9 % (35.4-49); MCH 30.5 pg (25.7-33.7); MCHC 32.3 g/dl (32.0-35.9); MEAN CELL VOLUME 94.6 fl (80-96); PLATELET COUNT 105 K/MM3 (134-434); RBC 2.95 M/mm3 (4.00-5.60); RDW 14.6 % (11.9-15.9); WHITE BLOOD COUNT 2.7 K/mm3 (4.0-10.0)
[2019-10-11 12:04] LABS: ALBUMIN 2.9 g/dl (3.4-5.0); BLOOD UREA NITROGEN 13.6 mg/dL (7-18); CALCIUM 8.6 mg/dL (8.5-10.1); CREATININE 0.9 mg/dL (0.55-1.3); POTASSIUM 3.8 mmol/L (3.5-5.1); TOT PROT 5.7 g/dl (6.4-8.2)
[2019-10-11] MEDS ORDERED: cloNIDine HCL 0.1 MG TABLET PO ONE (13:32)
--- NOTE | 2019-10-11 13:34 | PN ---
[facility] Progress Note Note: withdrawal symptom bp 153/92 clonidine 0.1 mg po now continue ativan regimen close monitoring
[2019-10-11] MEDS: THIAMINE HCL 100 MG TABLET (FP) PO SCH (22:07)
[2019-10-12] MEDS ORDERED: LORazepam 1 MG TABLET PO SCH (05:00)
--- NOTE | 2019-10-12 08:43 | PN ---
S CIWA - CIWA Score Nausea/Vomitin Muscle Tremors: 2 Anxiety: 2 Agitation: 2 Paroxysmal Sweats: No Perspiration Orientation: 0-Oriented Tacttile Disturbances: 1-Very Mild Itch/Numbness Auditory Disturbances: 0-None Visual Disturbances: 0-None Headache: 1-Very Mild CIWA-Ar Total Score: 10 S Progress Note (SOAP) Subjective: alert,irritable,anxious,interrupted sleep,aching pain in the body and back,using cane for ambulatory aid Objective: 10/12/19 08:40 Vital Signs Temperature 97.8 F 10/12/19 05:14 Pulse Rate 83 10/12/19 05:14 Respiratory Rate 16 10/12/19 05:14 Blood Pressure 155/89 10/12/19 05:14 O2 Sat by Pulse Oximetry (%) 100 10/12/19 05:14 10/12/19 08:40 Laboratory Last Values WBC 2.7 K/mm3 (4.0-10.0) L 10/11/19 08:00 RBC 2.95 M/mm3 (4.00-5.60) L 10/11/19 08:00 Hgb 9.0 GM/dL (11.7-16.9) L 10/11/19 08:00 Hct 27.9 % (35.4-49) L 10/11/19 08:00 MCV 94.6 fl (80-96) 10/11/19 08:00 MCH 30.5 pg (25.7-33.7) 10/11/19 08:00 MCHC 32.3 g/dl (32.0-35.9) 10/11/19 08:00 RDW 14.6 % (11.9-15.9) 10/11/19 08:00 Plt Count 105 K/MM3 (134-434) L D 10/11/19 08:00 MPV 8.0 fl (7.5-11.1) D 10/11/19 08:00 Sodium 142 mmol/L (136-145) 10/11/19 08:00 Potassium 3.8 mmol/L (3.5-5.1) 10/11/19 08:00 Chloride 110 mmol/L (98-107) H 10/11/19 08:00 Carbon Dioxide 24 mmol/L (21-32) 10/11/19 08:00 Anion Gap 8 MMOL/L (8-16) 10/11/19 08:00 BUN 13.6 mg/dL (7-18) 10/11/19 08:00 Creatinine 0.9 mg/dL (0.55-1.3) 10/11/19 08:00 Est GFR (CKD-EPI)AfAm 105.72 10/11/19 08:00 Est GFR (CKD-EPI)NonAf 91.22 10/11/19 08:00 Random Glucose 88 mg/dL (74-106) 10/11/19 08:00 Calcium 8.6 mg/dL (8.5-10.1) 10/11/19 08:00 Total Bilirubin 1.0 mg/dL (0.2-1) 10/11/19 08:00 AST 331 U/L (15-37) H 10/11/19 08:00 ALT 129 U/L (13-61) H 10/11/19 08:00 Alkaline Phosphatase 145 U/L (45-117) H 10/11/19 08:00 Total Protein 5.7 g/dl (6.4-8.2) L 10/11/19 08:00 Albumin 2.9 g/dl (3.4-5.0) L 10/11/19 08:00 Syphilis Serology Non-reactive (NONREACTIVE) 10/11/19 08:00 COVID-19 ([facility]ILAD[facility]) Not detected (Not Detected) 10/10/19 10:23 Assessment: 10/12/19 08:40 withdrawal symptom Plan: continue detox ativan regimen,ferrous sulfated 325 mgs po bid,hepatic function in am
[2019-10-12 09:11] VITALS: BP 134/82; PULSE 97; TEMP 97.7
--- NOTE | 2019-10-12 09:55 | PN ---
[facility] Progress Note Note: patient did not want to complete treatment due to personal issue,high risks of relapsing explained,patient understood, patient signed release ama
[2019-10-12] MEDS ORDERED: FERROUS SO4 325 MG TABLET (FP) PO SCH (10:00)
--- NOTE | 2019-10-12 10:02 | DS ---
[facility] Detox Discharge Summary Admission Date: 10/10/19 Discharge Date: 10/12/19 - History Present History: Alcohol Dependence, Cocaine Dependence Additional Comments: alert,oriented x 3 ambulation on the unit with cane and right wrist support lung clear on auscultation bilaterally abdomen soft,no distension,no pain,no tenderness patient did not want to complete treatment due to personal issue,high risks of relapsing explained,understood signed release ama follow up with medical provider at [facility] for follow up and out patient program,aa meeting left the unit in stable condition total time spending 35 minutes Pertinent Past History: seizure disorder hypertension anemia frequent fall ambulation with cane old injury of right wrist wearing splint gerd bph history of nephrectomy glaucoma Laboratory Last Values WBC 2.7 K/mm3 (4.0-10.0) L 10/11/19 08:00 RBC 2.95 M/mm3 (4.00-5.60) L 10/11/19 08:00 Hgb 9.0 GM/dL (11.7-16.9) L 10/11/19 08:00 Hct 27.9 % (35.4-49) L 10/11/19 08:00 MCV 94.6 fl (80-96) 10/11/19 08:00 MCH 30.5 pg (25.7-33.7) 10/11/19 08:00 MCHC 32.3 g/dl (32.0-35.9) 10/11/19 08:00 RDW 14.6 % (11.9-15.9) 10/11/19 08:00 Plt Count 105 K/MM3 (134-434) L D 10/11/19 08:00 MPV 8.0 fl (7.5-11.1) D 10/11/19 08:00 Sodium 142 mmol/L (136-145) 10/11/19 08:00 Potassium 3.8 mmol/L (3.5-5.1) 10/11/19 08:00 Chloride 110 mmol/L (98-107) H 10/11/19 08:00 Carbon Dioxide 24 mmol/L (21-32) 10/11/19 08:00 Anion Gap 8 MMOL/L (8-16) 10/11/19 08:00 BUN 13.6 mg/dL (7-18) 10/11/19 08:00 Creatinine 0.9 mg/dL (0.55-1.3) 10/11/19 08:00 Est GFR (CKD-EPI)AfAm 105.72 10/11/19 08:00 Est GFR (CKD-EPI)NonAf 91.22 10/11/19 08:00 Random Glucose 88 mg/dL (74-106) 10/11/19 08:00 Calcium 8.6 mg/dL (8.5-10.1) 10/11/19 08:00 Total Bilirubin 1.0 mg/dL (0.2-1) 10/11/19 08:00 AST 331 U/L (15-37) H 10/11/19 08:00 ALT 129 U/L (13-61) H 10/11/19 08:00 Alkaline Phosphatase 145 U/L (45-117) H 10/11/19 08:00 Total Protein 5.7 g/dl (6.4-8.2) L 10/11/19 08:00 Albumin 2.9 g/dl (3.4-5.0) L 10/11/19 08:00 Syphilis Serology Non-reactive (NONREACTIVE) 10/11/19 08:00 COVID-19 ([facility]) Not detected (Not Detected) 10/10/19 10:23 Vital Signs Temperature 97.7 F 10/12/19 08:36 Pulse Rate 97 H 10/12/19 08:36 Respiratory Rate 16 10/12/19 08:36 Blood Pressure 134/82 10/12/19 08:36 O2 Sat by Pulse Oximetry (%) 100 10/12/19 05:14 - Physical Exam Results Vital Signs: Vital Signs Temperature 97.7 F 10/12/19 08:36 Pulse Rate 97 H 10/12/19 08:36 Respiratory Rate 16 10/12/19 08:36 Blood Pressure 134/82 10/12/19 08:36 O2 Sat by Pulse Oximetry (%) 100 10/12/19 05:14 Pertinent Admission Physical Exam Findings: withdrawal signs and symptom Laboratory Last Values WBC 2.7 K/mm3 (4.0-10.0) L 10/11/19 08:00 RBC 2.95 M/mm3 (4.00-5.60) L 10/11/19 08:00 Hgb 9.0 GM/dL (11.7-16.9) L 10/11/19 08:00 Hct 27.9 % (35.4-49) L 10/11/19 08:00 MCV 94.6 fl (80-96) 10/11/19 08:00 MCH 30.5 pg (25.7-33.7) 10/11/19 08:00 MCHC 32.3 g/dl (32.0-35.9) 10/11/19 08:00 RDW 14.6 % (11.9-15.9) 10/11/19 08:00 Plt Count 105 K/MM3 (134-434) L D 10/11/19 08:00 MPV 8.0 fl (7.5-11.1) D 10/11/19 08:00 Sodium 142 mmol/L (136-145) 10/11/19 08:00 Potassium 3.8 mmol/L (3.5-5.1) 10/11/19 08:00 Chloride 110 mmol/L (98-107) H 10/11/19 08:00 Carbon Dioxide 24 mmol/L (21-32) 10/11/19 08:00 Anion Gap 8 MMOL/L (8-16) 10/11/19 08:00 BUN 13.6 mg/dL (7-18) 10/11/19 08:00 Creatinine 0.9 mg/dL (0.55-1.3) 10/11/19 08:00 Est GFR (CKD-EPI)AfAm 105.72 10/11/19 08:00 Est GFR (CKD-EPI)NonAf 91.22 10/11/19 08:00 Random Glucose 88 mg/dL (74-106) 10/11/19 08:00 Calcium 8.6 mg/dL (8.5-10.1) 10/11/19 08:00 Total Bilirubin 1.0 mg/dL (0.2-1) 10/11/19 08:00 AST 331 U/L (15-37) H 10/11/19 08:00 ALT 129 U/L (13-61) H 10/11/19 08:00 Alkaline Phosphatase 145 U/L (45-117) H 10/11/19 08:00 Total Protein 5.7 g/dl (6.4-8.2) L 10/11/19 08:00 Albumin 2.9 g/dl (3.4-5.0) L 10/11/19 08:00 Syphilis Serology Non-reactive (NONREACTIVE) 10/11/19 08:00 COVID-19 ([facility]) Not detected (Not Detected) 10/10/19 10:23 Vital Signs Temperature 97.7 F 10/12/19 08:36 Pulse Rate 97 H 10/12/19 08:36 Respiratory Rate 16 10/12/19 08:36 Blood Pressure 134/82 10/12/19 08:36 O2 Sat by Pulse Oximetry (%) 100 10/12/19 05:14 - Medication Discharge Medications: Ambulatory Orders Amlodipine Besylate [Norvasc -] 10 mg PO DAILY #30 tablet 02/13/19 Folic Acid - 1 mg PO DAILY 05/04/19 Pantoprazole Sodium [Protonix -] 20 mg PO DAILY 05/04/19 Thiamine HCl [B-1] 100 mg PO HS 05/04/19 Lisinopril [Prinivil] 10 mg PO DAILY #14 tablet 08/17/19 Tamsulosin HCl [Flomax -] 0.4 mg PO DAILY #14 cap.sr 08/17/19 levETIRAcetam [Keppra -] 500 mg PO BID #30 tablet 08/17/19 - Diagnosis (1) Alcohol dependence with uncomplicated withdrawal Status: Acute (2) Cocaine dependence Status: Acute Qualifiers: Substance use status: uncomplicated Qualified Code(s): F14.20 - Cocaine dependence, uncomplicated (3) Elevated aspartate aminotransferase level Status: Acute (4) Anemia Status: Chronic (5) BPH (benign prostatic hyperplasia) Status: Chronic Qualifiers: Lower urinary tract symptom presence: symptoms absent Qualified Code(s): N40.0 - Benign prostatic hyperplasia without lower urinary tract symptoms (6) GERD (gastroesophageal reflux disease) Status: Chronic Qualifiers: Esophagitis presence: without esophagitis Qualified Code(s): K21.9 - Gastro-esophageal reflux disease without esophagitis (7) Glaucoma Status: Chronic Qualifiers: Glaucoma type: unspecified Laterality: bilateral Qualified Code(s): H40.9 - Unspecified glaucoma (8) HTN (hypertension), benign Status: Chronic (9) Nicotine dependence Status: Chronic Qualifiers: Nicotine product type: cigarettes Substance use status: uncomplicated Qualified Code(s): F17.210 - Nicotine dependence, cigarettes, uncomplicated (10) Seizure disorder Status: Chronic (11) H/O unilateral nephrectomy Status: Resolved (12) Positive PPD Status: Resolved (13) Ambulates with cane Status: Acute - AMA Did Patient Leave Against Medical Advice: Yes
[2019-10-13] MEDS ORDERED: LORazepam 0.5 MG TABLET PO PRN
[2019-10-13] MEDS ORDERED: LORazepam 0.5 MG TABLET PO SCH (05:00)
[2019-10-14] MEDS ORDERED: LORazepam 0.5 MG TABLET PO ONE (05:00)
== END 2019-10-12 09:07 | disposition left against medical advice (07) | DRG 770 ==
LOC: YASAS 09:19 → Y6N 10:36
PROVIDERS: ADMIT Allergy & Immunology; ATTEND Allergy & Immunology
PROC: HZ2ZZZZ Detoxification Services for Substance Abuse Treatment (ICD-10-PCS; principal; 2019-10-10)
DX: F10.230 Alcohol dependence with withdrawal, uncomplicated (principal); F14.20 Cocaine dependence, uncomplicated; F17.210 Nicotine dependence, cigarettes, uncomplicated; F31.9 Bipolar disorder, unspecified; F19.282 Other psychoactive substance dependence with psychoactive substance-induced sleep disorder; F19.24 Other psychoactive substance dependence with psychoactive substance-induced mood disorder; D64.9 Anemia, unspecified; R56.1 Post traumatic seizures; I10 Essential (primary) hypertension; H40.9 Unspecified glaucoma; K21.9 Gastro-esophageal reflux disease without esophagitis; N40.0 Benign prostatic hyperplasia without lower urinary tract symptoms; R74.0 Nonspecific elevation of levels of transaminase and lactic acid dehydrogenase [LDH]; R76.11 Nonspecific reaction to tuberculin skin test without active tuberculosis; Z90.5 Acquired absence of kidney; Z99.89 Dependence on other enabling machines and devices
CPT/HCPCS: 36415; 80053; 85027; 86780; J0735; U0003

== ENCOUNTER 2020-05-04 08:46 | Inpatient (IN) | payer OTHER ==
[2020-05-04 11:58] VITALS: BMI 19.7
[2020-05-04] MEDS ORDERED: MAG HYDROX/AL HYDROX/SIMETH 30 ML UNIT-DOSE CUP PO PRN (12:14)
[2020-05-04] MEDS ORDERED: ACETAMINOPHEN 325 MG TABLET (FP) PO PRN ×2 (12:14)
[2020-05-04] MEDS ORDERED: NICOTINE POLACRILEX 2 MG GUM BUC PRN (12:14)
[2020-05-04] MEDS ORDERED: MAGNESIUM HYDROX 2400MG/30ML ORAL SUSPENSION 30 ML CUP PO PRN (12:14)
[2020-05-04] MEDS ORDERED: BISMUTH SUBSALICYLATE 524 MG/30 ML UD PO PRN (12:14)
[2020-05-04] MEDS ORDERED: MENTHOL/PHENOL 1 EACH UD MM PRN (12:14)
[2020-05-04] MEDS ORDERED: MAGNESIUM CITRATE 300 ML BOTTLE PO PRN (12:14)
[2020-05-04] MEDS ORDERED: ONDANSETRON *ODT* 4 MG TABLET SL PRN (12:14)
[2020-05-04] MEDS: chlordiazePOXIDE HCL 25 MG CAPSULE PO PRN (13:58)
[2020-05-04] MEDS: hydrOXYzine PAMOATE 25 MG CAPSULE (FP) PO SCH ×3 (13:58→22:47)
[2020-05-04] MEDS ORDERED: cloNIDine HCL 0.1 MG TABLET PO ONE (13:58)
[2020-05-04] MEDS: NICOTINE 21 MG/24 HOURS TOPICAL PATCH TD SCH (13:58)
[2020-05-04 15:35] LABS: POTASSIUM 4.4 mmol/L (3.5-5.1)
[2020-05-04 15:41] LABS: ALBUMIN 4.2 g/dl (3.4-5.0); BLOOD UREA NITROGEN 19.2 mg/dL (7-18); CALCIUM 9.9 mg/dL (8.5-10.1)
[2020-05-04 15:42] LABS: HEMATOCRIT 31.7 % (35.4-49); HEMOGLOBIN 10.2 GM/dL (11.7-16.9); MCH 28.3 pg (25.7-33.7); MCHC 32.3 g/dl (32.0-35.9); MEAN CELL VOLUME 87.8 fl (80-96); MEAN PLT VOLUME 6.9 fl (7.5-11.1); PLATELET COUNT 237 K/MM3 (134-434); RBC 3.61 M/mm3 (4.00-5.60); RDW 17.3 % (11.9-15.9); WHITE BLOOD COUNT 4.7 K/mm3 (4.0-10.0)
[2020-05-04 15:44] LABS: CREATININE 1.1 mg/dL (0.55-1.3)
[2020-05-04 15:45] LABS: TOT PROT 8.2 g/dl (6.4-8.2)
[2020-05-04 15:46] LABS: BILIRUBIN,TOTAL 1.1 mg/dL (0.2-1)
[2020-05-04] MEDS: chlordiazePOXIDE HCL 25 MG CAPSULE PO SCH ×2 (18:14→22:46)
[2020-05-04] MEDS: THIAMINE HCL 100 MG TABLET (FP) PO SCH (22:46)
[2020-05-04] MEDS: levETIRAcetam 500 MG TABLET (FP) PO SCH (22:47)
[2020-05-04] MEDS: MELATONIN 5 MG TABLETS PO SCH (22:47)
[2020-05-05] MEDS: chlordiazePOXIDE HCL 25 MG CAPSULE PO SCH ×4 (06:27→23:09)
[2020-05-05] MEDS: hydrOXYzine PAMOATE 25 MG CAPSULE (FP) PO SCH ×5 (06:28→22:52)
[2020-05-05] MEDS ORDERED: amLODIPine BESYLATE 10 MG TABLET (FP) PO SCH (10:00)
[2020-05-05] MEDS: PANTOPRAZOLE 20 MG TABLET PO SCH (10:17)
[2020-05-05] MEDS: LISINOPRIL 10 MG TABLET PO SCH (10:17)
[2020-05-05] MEDS: TAMSULOSIN HCL 0.4 MG CAP PO SCH (10:17)
[2020-05-05] MEDS: amLODIPine BESYLATE 10 MG TABLET (FP) PO SCH (10:17)
[2020-05-05] MEDS: levETIRAcetam 500 MG TABLET (FP) PO SCH ×2 (10:17→22:52)
[2020-05-05] MEDS: PRENATAL VITAMINS W/ FOLIC ACID TABLET (FP) PO SCH (10:18)
[2020-05-05] MEDS: NICOTINE 21 MG/24 HOURS TOPICAL PATCH TD SCH (10:18)
[2020-05-05] MEDS: chlordiazePOXIDE HCL 25 MG CAPSULE PO PRN ×2 (18:18→22:54)
[2020-05-05] MEDS ORDERED: SUVOREXANT 10 MG TABLET PO PRN (22:00)
[2020-05-05] MEDS: THIAMINE HCL 100 MG TABLET (FP) PO SCH (22:52)
[2020-05-05] MEDS: MELATONIN 5 MG TABLETS PO SCH (22:52)
[2020-05-06] MEDS: METHOCARBAMOL 500 MG TABLET PO PRN (05:26)
[2020-05-06] MEDS: IBUPROFEN 400 MG TABLET (FP) PO PRN ×2 (05:26→14:52)
[2020-05-06] MEDS: chlordiazePOXIDE HCL 25 MG CAPSULE PO SCH ×4 (05:27→22:50)
[2020-05-06] MEDS: hydrOXYzine PAMOATE 25 MG CAPSULE (FP) PO SCH ×5 (06:38→22:50)
[2020-05-06] MEDS: levETIRAcetam 500 MG TABLET (FP) PO SCH ×2 (10:55→22:50)
[2020-05-06] MEDS: amLODIPine BESYLATE 10 MG TABLET (FP) PO SCH (10:55)
[2020-05-06] MEDS: TAMSULOSIN HCL 0.4 MG CAP PO SCH (10:55)
[2020-05-06] MEDS: PRENATAL VITAMINS W/ FOLIC ACID TABLET (FP) PO SCH (10:55)
[2020-05-06] MEDS: PANTOPRAZOLE 20 MG TABLET PO SCH (10:55)
[2020-05-06] MEDS: LISINOPRIL 10 MG TABLET PO SCH (10:55)
[2020-05-06] MEDS: NICOTINE 21 MG/24 HOURS TOPICAL PATCH TD SCH (11:01)
[2020-05-06] MEDS: MELATONIN 5 MG TABLETS PO SCH (22:50)
[2020-05-06] MEDS: THIAMINE HCL 100 MG TABLET (FP) PO SCH (22:50)
[2020-05-07] MEDS ORDERED: chlordiazePOXIDE HCL 10 MG CAPSULE PO PRN
[2020-05-07] MEDS: chlordiazePOXIDE HCL 10 MG CAPSULE PO SCH ×2 (05:32→11:02)
[2020-05-07] MEDS: hydrOXYzine PAMOATE 25 MG CAPSULE (FP) PO SCH ×3 (05:33→14:07)
[2020-05-07] MEDS: METHOCARBAMOL 500 MG TABLET PO PRN (07:04)
[2020-05-07] MEDS: levETIRAcetam 500 MG TABLET (FP) PO SCH (11:02)
[2020-05-07] MEDS: TAMSULOSIN HCL 0.4 MG CAP PO SCH (11:02)
[2020-05-07] MEDS: PANTOPRAZOLE 20 MG TABLET PO SCH (11:02)
[2020-05-07] MEDS: LISINOPRIL 10 MG TABLET PO SCH (11:02)
[2020-05-07] MEDS: PRENATAL VITAMINS W/ FOLIC ACID TABLET (FP) PO SCH (11:03)
[2020-05-07] MEDS: NICOTINE 21 MG/24 HOURS TOPICAL PATCH TD SCH (11:03)
[2020-05-07] MEDS: amLODIPine BESYLATE 10 MG TABLET (FP) PO SCH (14:07)
[2020-05-07 17:17] VITALS: BP 123/86; PULSE 99; TEMP 97.1
[2020-05-08] MEDS ORDERED: chlordiazePOXIDE HCL 10 MG CAPSULE PO SCH (05:00)
[2020-05-09] MEDS ORDERED: chlordiazePOXIDE HCL 10 MG CAPSULE PO ONE (05:00)
== END 2020-05-07 17:40 | disposition left against medical advice (07) | DRG 770 ==
LOC: YASAS 08:46 → Y6N 12:45
PROVIDERS: ADMIT Allergy & Immunology; ATTEND Allergy & Immunology
PROC: HZ2ZZZZ Detoxification Services for Substance Abuse Treatment (ICD-10-PCS; principal; 2020-05-04)
DX: F10.230 Alcohol dependence with withdrawal, uncomplicated (principal); F13.20 Sedative, hypnotic or anxiolytic dependence, uncomplicated; F17.210 Nicotine dependence, cigarettes, uncomplicated; F19.280 Other psychoactive substance dependence with psychoactive substance-induced anxiety disorder; F19.282 Other psychoactive substance dependence with psychoactive substance-induced sleep disorder; F39 Unspecified mood [affective] disorder; D64.9 Anemia, unspecified; I10 Essential (primary) hypertension; K21.9 Gastro-esophageal reflux disease without esophagitis; H40.9 Unspecified glaucoma; R56.1 Post traumatic seizures; Z87.820 Personal history of traumatic brain injury; R74.8 Abnormal levels of other serum enzymes; R29.6 Repeated falls; Z99.89 Dependence on other enabling machines and devices; Z90.5 Acquired absence of kidney; Z87.81 Personal history of (healed) traumatic fracture; Z56.0 Unemployment, unspecified; Z59.0 Homelessness
CPT/HCPCS: 36415; 71046-TC-FY; 80053; 85027; 86780; C9803; J0735; U0003

== ENCOUNTER 2020-08-02 22:25 | Inpatient (IN) | payer OTHER ==
[2020-08-02 14:38] VITALS: BMI 19.8
[2020-08-02] MEDS ORDERED: cloNIDine HCL 0.1 MG TABLET PO ONE (23:04)
[2020-08-02] MEDS ORDERED: LORazepam 2 MG TABLET ONE (23:05)
[2020-08-02] MEDS ORDERED: METHOCARBAMOL 500 MG TABLET PO PRN (23:11)
[2020-08-02] MEDS ORDERED: MAGNESIUM CITRATE 300 ML BOTTLE PO PRN (23:11)
[2020-08-02] MEDS ORDERED: MAGNESIUM HYDROX 2400MG/30ML ORAL SUSPENSION 30 ML CUP PO PRN (23:11)
[2020-08-02] MEDS ORDERED: MENTHOL/PHENOL 1 EACH UD MM PRN (23:11)
[2020-08-02] MEDS ORDERED: BISMUTH SUBSALICYLATE 524 MG/30 ML PO PRN (23:11)
[2020-08-02] MEDS ORDERED: ACETAMINOPHEN 325 MG TABLET (FP) PO PRN (23:11)
[2020-08-02] MEDS ORDERED: NICOTINE POLACRILEX 2 MG GUM BUC PRN (23:11)
[2020-08-02] MEDS ORDERED: guaiFENesin 200 MG/10 ML 10 ML UNIT-DOSE CUPS PO PRN (23:11)
[2020-08-02] MEDS ORDERED: ONDANSETRON *ODT* 4 MG TABLET SL PRN (23:11)
[2020-08-02] MEDS ORDERED: DICYCLOMINE HCL 10 MG CAPSULE PO PRN (23:11)
[2020-08-02] MEDS ORDERED: MAG HYDROX/AL HYDROX/SIMETH 30 ML UNIT-DOSE CUP PO PRN (23:11)
[2020-08-02] MEDS: LORazepam 1 MG TABLET PO SCH (23:54)
[2020-08-03] MEDS: LORazepam 1 MG TABLET PO SCH ×4 (05:18→22:28)
[2020-08-03 10:07] LABS: HEMATOCRIT 26.8 % (35.4-49); HEMOGLOBIN 8.9 GM/dL (11.7-16.9); MCH 30.5 pg (25.7-33.7); MCHC 33.3 g/dl (32.0-35.9); MEAN CELL VOLUME 91.5 fl (80-96); MEAN PLT VOLUME 7.7 fl (7.5-11.1); PLATELET COUNT 175 K/MM3 (134-434); RBC 2.93 M/mm3 (4.00-5.60); RDW 19.1 % (11.9-15.9)
[2020-08-03 10:18] LABS: CALCIUM 8.2 mg/dL (8.5-10.1)
[2020-08-03 10:19] LABS: BLOOD UREA NITROGEN 26.8 mg/dL (7-18)
[2020-08-03 10:21] LABS: BILIRUBIN,TOTAL 0.3 mg/dL (0.2-1); TOT PROT 6.8 g/dl (6.4-8.2)
[2020-08-03 10:22] LABS: CREATININE 1.6 mg/dL (0.55-1.3)
[2020-08-03 10:23] LABS: ALBUMIN 3.7 g/dl (3.4-5.0)
[2020-08-03] MEDS: PRENATAL VITAMINS W/ FOLIC ACID TABLET (FP) PO SCH (10:55)
[2020-08-03] MEDS: NICOTINE 21 MG/24 HOURS TOPICAL PATCH TD SCH (10:57)
[2020-08-03] MEDS: ACETAMINOPHEN 325 MG TABLET (FP) PO PRN ×2 (10:58→20:09)
[2020-08-03 11:31] LABS: HIV INTERPRETATION NEGATIVE (NEGATIVE)
[2020-08-03] MEDS: IBUPROFEN 400 MG TABLET (FP) PO PRN ×2 (15:16→22:32)
[2020-08-03] MEDS: LORazepam 1 MG TABLET PO PRN (20:08)
[2020-08-03] MEDS ORDERED: SUVOREXANT 10 MG TABLET PO PRN (22:00)
[2020-08-03] MEDS: FERROUS SO4 325 MG TABLET (FP) PO SCH (22:28)
[2020-08-03] MEDS: THIAMINE HCL 100 MG TABLET (FP) PO SCH (22:28)
[2020-08-03] MEDS: levETIRAcetam 500 MG TABLET (FP) PO SCH (22:28)
[2020-08-03] MEDS: MELATONIN 5 MG TABLETS PO SCH (22:31)
[2020-08-03] MEDS: P-EPHED 60MG/TRIPROLIDI 2.5MG TABLET PO PRN (22:33)
[2020-08-04] MEDS: LORazepam 1 MG TABLET PO SCH ×4 (05:36→22:13)
[2020-08-04] MEDS: P-EPHED 60MG/TRIPROLIDI 2.5MG TABLET PO PRN (05:38)
[2020-08-04] MEDS ORDERED: cloNIDine HCL 0.1 MG TABLET PO ONE (07:20)
[2020-08-04] MEDS: TAMSULOSIN HCL 0.4 MG CAP PO SCH (08:55)
[2020-08-04 10:12] LABS: HEMATOCRIT 27.2 % (35.4-49); HEMOGLOBIN 8.9 GM/dL (11.7-16.9); MCH 30.3 pg (25.7-33.7); MCHC 32.8 g/dl (32.0-35.9); MEAN CELL VOLUME 92.3 fl (80-96); MEAN PLT VOLUME 7.6 fl (7.5-11.1); PLATELET COUNT 163 K/MM3 (134-434); RBC 2.95 M/mm3 (4.00-5.60); WHITE BLOOD COUNT 4.8 K/mm3 (4.0-10.0)
[2020-08-04 10:16] LABS: INR 0.99 (0.83-1.09)
[2020-08-04 10:21] LABS: ALBUMIN 3.3 g/dl (3.4-5.0); BLOOD UREA NITROGEN 29.2 mg/dL (7-18); CALCIUM 8.4 mg/dL (8.5-10.1)
[2020-08-04 10:26] LABS: BILIRUBIN,TOTAL 0.5 mg/dL (0.2-1); TOT PROT 6.3 g/dl (6.4-8.2)
[2020-08-04 10:28] LABS: CREATININE 1.3 mg/dL (0.55-1.3)
[2020-08-04] MEDS: FERROUS SO4 325 MG TABLET (FP) PO SCH ×2 (10:43→22:13)
[2020-08-04] MEDS: amLODIPine BESYLATE 10 MG TABLET (FP) PO SCH (10:45)
[2020-08-04] MEDS: LISINOPRIL 10 MG TABLET PO SCH (10:45)
[2020-08-04] MEDS: levETIRAcetam 500 MG TABLET (FP) PO SCH ×2 (10:45→22:13)
[2020-08-04] MEDS: PRENATAL VITAMINS W/ FOLIC ACID TABLET (FP) PO SCH (10:46)
[2020-08-04] MEDS: NICOTINE 21 MG/24 HOURS TOPICAL PATCH TD SCH (10:48)
[2020-08-04] MEDS: PANTOPRAZOLE 20 MG TABLET PO SCH (10:49)
[2020-08-04] MEDS: LORazepam 1 MG TABLET PO PRN (15:21)
[2020-08-04] MEDS: THIAMINE HCL 100 MG TABLET (FP) PO SCH (22:13)
[2020-08-04] MEDS: MELATONIN 5 MG TABLETS PO SCH (23:27)
[2020-08-05] MEDS ORDERED: LORazepam 0.5 MG TABLET PO PRN
[2020-08-05] MEDS: LORazepam 0.5 MG TABLET PO SCH ×4 (06:12→23:13)
[2020-08-05] MEDS: LISINOPRIL 10 MG TABLET PO SCH (10:54)
[2020-08-05] MEDS: PRENATAL VITAMINS W/ FOLIC ACID TABLET (FP) PO SCH (10:54)
[2020-08-05] MEDS: TAMSULOSIN HCL 0.4 MG CAP PO SCH (10:54)
[2020-08-05] MEDS: FERROUS SO4 325 MG TABLET (FP) PO SCH ×2 (10:54→23:13)
[2020-08-05] MEDS: PANTOPRAZOLE 20 MG TABLET PO SCH (10:55)
[2020-08-05] MEDS: NICOTINE 21 MG/24 HOURS TOPICAL PATCH TD SCH (10:55)
[2020-08-05] MEDS: amLODIPine BESYLATE 10 MG TABLET (FP) PO SCH (10:55)
[2020-08-05] MEDS: levETIRAcetam 500 MG TABLET (FP) PO SCH ×2 (10:55→23:13)
[2020-08-05] MEDS: ACETAMINOPHEN 325 MG TABLET (FP) PO PRN (15:27)
[2020-08-05] MEDS: THIAMINE HCL 100 MG TABLET (FP) PO SCH (23:13)
[2020-08-05] MEDS: MELATONIN 5 MG TABLETS PO SCH (23:21)
[2020-08-06] MEDS ORDERED: LORazepam 0.5 MG TABLET PO ONE (05:00)
[2020-08-06] MEDS: PANTOPRAZOLE 20 MG TABLET PO SCH (10:04)
[2020-08-06] MEDS: levETIRAcetam 500 MG TABLET (FP) PO SCH ×2 (10:04→23:03)
[2020-08-06] MEDS: amLODIPine BESYLATE 10 MG TABLET (FP) PO SCH (10:04)
[2020-08-06] MEDS: LISINOPRIL 10 MG TABLET PO SCH (10:04)
[2020-08-06] MEDS: NICOTINE 21 MG/24 HOURS TOPICAL PATCH TD SCH (10:04)
[2020-08-06] MEDS: TAMSULOSIN HCL 0.4 MG CAP PO SCH (10:04)
[2020-08-06] MEDS: FERROUS SO4 325 MG TABLET (FP) PO SCH ×2 (10:04→23:03)
[2020-08-06] MEDS: PRENATAL VITAMINS W/ FOLIC ACID TABLET (FP) PO SCH (10:05)
[2020-08-06] MEDS: LACTULOSE 20 GM/30 ML UDC (FOR ORAL USE ONLY) PO SCH ×2 (14:09→23:03)
[2020-08-06 19:37] LABS: URINE APPEARANCE CLEAR; URINE BILIRUBIN NEGATIVE (NEGATIVE); URINE COLOR YELLOW; URINE GLUCOSE (UA) NEGATIVE (NEGATIVE); URINE KETONE NEGATIVE (NEGATIVE); URINE LEUK ESTERASE NEGATIVE (NEGATIVE); URINE NITRITE NEGATIVE (NEGATIVE); URINE PROTEIN TRACE (NEGATIVE); URINE UROBILINOGEN 0.2 mg/dL (0.2-1.0)
[2020-08-06] MEDS: NITROFURANTOIN MACROCRYSTAL 50 MG CAPSULE (FP) PO SCH (23:03)
[2020-08-06] MEDS: THIAMINE HCL 100 MG TABLET (FP) PO SCH (23:03)
[2020-08-06] MEDS: ACETAMINOPHEN 325 MG TABLET (FP) PO PRN (23:04)
[2020-08-06] MEDS: MELATONIN 5 MG TABLETS PO SCH (23:04)
[2020-08-07] MEDS: NITROFURANTOIN MACROCRYSTAL 50 MG CAPSULE (FP) PO SCH ×2 (05:24→11:07)
[2020-08-07] MEDS: LACTULOSE 20 GM/30 ML UDC (FOR ORAL USE ONLY) PO SCH (05:24)
[2020-08-07 10:17] LABS: BASO % 1.1 % (0-2.0); EOS % 3.1 % (0-4.5); HEMATOCRIT 27.9 % (35.4-49); HEMOGLOBIN 9.1 GM/dL (11.7-16.9); LYMPH % 19.8 % (8-40); MCH 30.3 pg (25.7-33.7); MCHC 32.7 g/dl (32.0-35.9); MEAN CELL VOLUME 92.7 fl (80-96); MEAN PLT VOLUME 7.3 fl (7.5-11.1); MONO % 12.5 % (3.8-10.2); NEUT % 63.5 % (42.8-82.8); PLATELET COUNT 335 K/MM3 (134-434); RBC 3.01 M/mm3 (4.00-5.60); RDW 18.3 % (11.9-15.9); WHITE BLOOD COUNT 4.7 K/mm3 (4.0-10.0)
[2020-08-07 10:21] LABS: CALCIUM 8.9 mg/dL (8.5-10.1)
[2020-08-07 10:22] LABS: ALBUMIN 3.5 g/dl (3.4-5.0); BLOOD UREA NITROGEN 23.7 mg/dL (7-18)
[2020-08-07 10:25] LABS: CREATININE 1.2 mg/dL (0.55-1.3)
[2020-08-07 10:26] LABS: BILIRUBIN,TOTAL 0.9 mg/dL (0.2-1)
[2020-08-07] MEDS: PRENATAL VITAMINS W/ FOLIC ACID TABLET (FP) PO SCH (11:04)
[2020-08-07] MEDS: LISINOPRIL 10 MG TABLET PO SCH (11:04)
[2020-08-07] MEDS: PANTOPRAZOLE 20 MG TABLET PO SCH (11:04)
[2020-08-07] MEDS: FERROUS SO4 325 MG TABLET (FP) PO SCH (11:04)
[2020-08-07] MEDS: levETIRAcetam 500 MG TABLET (FP) PO SCH (11:04)
[2020-08-07] MEDS: amLODIPine BESYLATE 10 MG TABLET (FP) PO SCH (11:04)
[2020-08-07] MEDS: TAMSULOSIN HCL 0.4 MG CAP PO SCH (11:04)
[2020-08-07] MEDS: NICOTINE 21 MG/24 HOURS TOPICAL PATCH TD SCH (11:05)
[2020-08-07] MEDS: ACETAMINOPHEN 325 MG TABLET (FP) PO PRN (11:07)
[2020-08-07] MEDS ORDERED: LACTULOSE 20 GM/30 ML UDC (FOR ORAL USE ONLY) PO SCH (14:00)
[2020-08-07 14:32] VITALS: BP 152/90; PULSE 83; TEMP 97.7
[2020-08-08] MEDS ORDERED: LACTULOSE 20 GM/30 ML UDC (FOR ORAL USE ONLY) PO SCH ×2 (10:00)
== END 2020-08-07 15:10 | disposition home or self-care (01) | DRG 774 ==
LOC: YASAS 22:25 → Y6N 22:33
PROVIDERS: ADMIT Allergy & Immunology; ATTEND Allergy & Immunology
PROC: HZ2ZZZZ Detoxification Services for Substance Abuse Treatment (ICD-10-PCS; principal; 2020-08-02)
DX: F10.230 Alcohol dependence with withdrawal, uncomplicated (principal); F14.20 Cocaine dependence, uncomplicated; F17.210 Nicotine dependence, cigarettes, uncomplicated; F19.280 Other psychoactive substance dependence with psychoactive substance-induced anxiety disorder; F19.282 Other psychoactive substance dependence with psychoactive substance-induced sleep disorder; F19.24 Other psychoactive substance dependence with psychoactive substance-induced mood disorder; F31.9 Bipolar disorder, unspecified; R56.1 Post traumatic seizures; D64.9 Anemia, unspecified; E86.0 Dehydration; H40.9 Unspecified glaucoma; I10 Essential (primary) hypertension; K21.9 Gastro-esophageal reflux disease without esophagitis; N40.0 Benign prostatic hyperplasia without lower urinary tract symptoms; N28.9 Disorder of kidney and ureter, unspecified; R41.82 Altered mental status, unspecified; R79.89 Other specified abnormal findings of blood chemistry; R76.11 Nonspecific reaction to tuberculin skin test without active tuberculosis; Z90.5 Acquired absence of kidney
CPT/HCPCS: 36415; 71045-TC-FY; 80053; 81003; 82140; 83540; 83550; 83690; 83735; 84484; 84520; 85025; 85027; 85610; 86780; 87077; 87086; 87389; 93005; 93010; 99282-25; C9803; J0735; U0003; U0005

== ENCOUNTER 2020-12-29 09:06 | Inpatient (IN) | payer OTHER ==
[2020-12-29 10:18] VITALS: BMI 17.6
[2020-12-29] MEDS ORDERED: ONDANSETRON *ODT* 4 MG TABLET SL PRN (10:58)
[2020-12-29] MEDS ORDERED: BISMUTH SUBSALICYLATE 262 MG/15 ML BTL PO PRN (10:58)
[2020-12-29] MEDS ORDERED: MAGNESIUM CITRATE 300 ML BOTTLE PO PRN (10:58)
[2020-12-29] MEDS ORDERED: MAG HYDROX/AL HYDROX/SIMETH 30 ML UNIT-DOSE CUP PO PRN (10:58)
[2020-12-29] MEDS ORDERED: MENTHOL/PHENOL 1 EACH UD MM PRN (10:58)
[2020-12-29] MEDS ORDERED: MAGNESIUM HYDROX 2400MG/30ML ORAL SUSPENSION 30 ML CUP PO PRN (10:58)
[2020-12-29] MEDS ORDERED: METHOCARBAMOL 500 MG TABLET PO PRN (10:58)
[2020-12-29] MEDS ORDERED: IBUPROFEN 400 MG TABLET (FP) PO PRN (10:58)
[2020-12-29] MEDS ORDERED: ACETAMINOPHEN 325 MG TABLET (FP) PO PRN ×2 (10:58)
[2020-12-29] MEDS ORDERED: NICOTINE 10 MG CARTRIDGE (INHALER) IH PRN (10:58)
[2020-12-29] MEDS ORDERED: diazePAM 5 MG TABLET PO PRN (11:04)
[2020-12-29 14:44] LABS: HEMATOCRIT 28.1 % (35.4-49); HEMOGLOBIN 9.3 GM/dL (11.7-16.9); MCH 30.8 pg (25.7-33.7); MCHC 33.1 g/dl (32.0-35.9); MEAN CELL VOLUME 93.2 fl (80-96); MEAN PLT VOLUME 6.7 fl (7.5-11.1); PLATELET COUNT 345 10^3/uL (134-434); RBC 3.02 M/mm3 (4.00-5.60); RDW 16.1 % (11.9-15.9); WHITE BLOOD COUNT 3.7 K/mm3 (4.0-10.0)
[2020-12-29 15:06] LABS: ALBUMIN 3.1 g/dl (3.4-5.0); BLOOD UREA NITROGEN 19.8 mg/dL (7-18)
[2020-12-29 15:09] LABS: CREATININE 1.5 mg/dL (0.55-1.3)
[2020-12-29 15:10] LABS: BILIRUBIN,TOTAL 0.4 mg/dL (0.2-1); TOT PROT 6.9 g/dl (6.4-8.2)
[2020-12-29] MEDS ORDERED: cloNIDine HCL 0.1 MG TABLET PO ONE (15:22)
[2020-12-29] MEDS: hydrOXYzine PAMOATE 25 MG CAPSULE (FP) PO SCH ×3 (16:02→22:50)
[2020-12-29] MEDS: FAMOTIDINE 10 MG TABLET PO SCH (16:02)
[2020-12-29] MEDS: PRENATAL VITAMINS W/ FOLIC ACID TABLET (FP) PO SCH (16:02)
[2020-12-29] MEDS: NICOTINE 14 MG/24 HOURS TOPICAL PATCH TD SCH (16:02)
[2020-12-29] MEDS: amLODIPine BESYLATE 10 MG TABLET (FP) PO SCH (16:09)
[2020-12-29] MEDS: LISINOPRIL 10 MG TABLET PO SCH (16:09)
[2020-12-29] MEDS: diazePAM 5 MG TABLET PO SCH ×2 (18:02→22:51)
[2020-12-29] MEDS: THIAMINE HCL 100 MG TABLET (FP) PO SCH (22:50)
[2020-12-29] MEDS: MELATONIN 5 MG TABLETS PO SCH (22:50)
[2020-12-29] MEDS: levETIRAcetam 500 MG TABLET (FP) PO SCH (22:51)
[2020-12-30] MEDS: hydrOXYzine PAMOATE 25 MG CAPSULE (FP) PO SCH ×5 (06:31→22:26)
[2020-12-30] MEDS: diazePAM 5 MG TABLET PO SCH ×4 (06:31→22:26)
[2020-12-30] MEDS: NICOTINE 14 MG/24 HOURS TOPICAL PATCH TD SCH (10:48)
[2020-12-30] MEDS: LISINOPRIL 10 MG TABLET PO SCH (10:49)
[2020-12-30] MEDS: TAMSULOSIN HCL 0.4 MG CAP PO SCH (10:49)
[2020-12-30] MEDS: FAMOTIDINE 10 MG TABLET PO SCH (10:49)
[2020-12-30] MEDS: amLODIPine BESYLATE 10 MG TABLET (FP) PO SCH (10:49)
[2020-12-30] MEDS: PRENATAL VITAMINS W/ FOLIC ACID TABLET (FP) PO SCH (10:49)
[2020-12-30] MEDS: levETIRAcetam 500 MG TABLET (FP) PO SCH ×2 (10:49→22:26)
[2020-12-30] MEDS: MELATONIN 5 MG TABLETS PO SCH (22:26)
[2020-12-30] MEDS: THIAMINE HCL 100 MG TABLET (FP) PO SCH (22:26)
[2020-12-31] MEDS: diazePAM 5 MG TABLET PO SCH ×3 (05:50→22:32)
[2020-12-31] MEDS: hydrOXYzine PAMOATE 25 MG CAPSULE (FP) PO SCH ×5 (05:51→22:32)
[2020-12-31] MEDS: LISINOPRIL 10 MG TABLET PO SCH (10:44)
[2020-12-31] MEDS: TAMSULOSIN HCL 0.4 MG CAP PO SCH (10:44)
[2020-12-31] MEDS: PRENATAL VITAMINS W/ FOLIC ACID TABLET (FP) PO SCH (10:44)
[2020-12-31] MEDS: FAMOTIDINE 10 MG TABLET PO SCH (10:44)
[2020-12-31] MEDS: levETIRAcetam 500 MG TABLET (FP) PO SCH ×2 (10:44→22:31)
[2020-12-31] MEDS: NICOTINE 14 MG/24 HOURS TOPICAL PATCH TD SCH (10:48)
[2020-12-31] MEDS: amLODIPine BESYLATE 10 MG TABLET (FP) PO SCH (10:49)
[2020-12-31] MEDS: THIAMINE HCL 100 MG TABLET (FP) PO SCH (22:31)
[2020-12-31] MEDS: MELATONIN 5 MG TABLETS PO SCH (22:32)
[2021-01-01] MEDS: hydrOXYzine PAMOATE 25 MG CAPSULE (FP) PO SCH (06:31)
[2021-01-01] MEDS: diazePAM 5 MG TABLET PO SCH ×2 (06:31→18:00)
[2021-01-01] MEDS ORDERED: hydrOXYzine PAMOATE 25 MG CAPSULE (FP) PO PRN (10:38)
[2021-01-01] MEDS: LISINOPRIL 10 MG TABLET PO SCH (11:21)
[2021-01-01] MEDS: FAMOTIDINE 10 MG TABLET PO SCH (11:21)
[2021-01-01] MEDS: amLODIPine BESYLATE 10 MG TABLET (FP) PO SCH (11:21)
[2021-01-01] MEDS: TAMSULOSIN HCL 0.4 MG CAP PO SCH (11:21)
[2021-01-01] MEDS: levETIRAcetam 500 MG TABLET (FP) PO SCH ×2 (11:21→22:43)
[2021-01-01] MEDS: PRENATAL VITAMINS W/ FOLIC ACID TABLET (FP) PO SCH (11:22)
[2021-01-01] MEDS: NICOTINE 14 MG/24 HOURS TOPICAL PATCH TD SCH (11:31)
[2021-01-01] MEDS: FERROUS SO4 325 MG TABLET (FP) PO SCH ×2 (13:01→17:59)
[2021-01-01] MEDS: THIAMINE HCL 100 MG TABLET (FP) PO SCH (22:43)
[2021-01-01] MEDS: MELATONIN 5 MG TABLETS PO SCH (22:43)
[2021-01-02] MEDS ORDERED: diazePAM 5 MG TABLET PO ONE (06:00)
[2021-01-02] MEDS: FERROUS SO4 325 MG TABLET (FP) PO SCH ×2 (07:07→11:06)
[2021-01-02 09:18] VITALS: TEMP 96.9
[2021-01-02] MEDS: amLODIPine BESYLATE 10 MG TABLET (FP) PO SCH (09:20)
[2021-01-02] MEDS: levETIRAcetam 500 MG TABLET (FP) PO SCH (09:20)
[2021-01-02] MEDS: FAMOTIDINE 10 MG TABLET PO SCH (09:20)
[2021-01-02] MEDS: TAMSULOSIN HCL 0.4 MG CAP PO SCH (09:21)
[2021-01-02] MEDS: LISINOPRIL 10 MG TABLET PO SCH (09:21)
[2021-01-02] MEDS: PRENATAL VITAMINS W/ FOLIC ACID TABLET (FP) PO SCH (09:21)
[2021-01-02] MEDS: NICOTINE 14 MG/24 HOURS TOPICAL PATCH TD SCH (10:55)
[2021-01-02 11:48] VITALS: BP 149/96; PULSE 97
[2021-01-02 12:48] LABS: HEMATOCRIT 26.8 % (35.4-49); MCH 31.5 pg (25.7-33.7); MCHC 33.6 g/dl (32.0-35.9); MEAN CELL VOLUME 93.9 fl (80-96); MEAN PLT VOLUME 7.2 fl (7.5-11.1); PLATELET COUNT 215 10^3/uL (134-434); RBC 2.86 M/mm3 (4.00-5.60); RDW 15.3 % (11.9-15.9); WHITE BLOOD COUNT 6.2 K/mm3 (4.0-10.0)
[2021-01-02 13:07] LABS: ALBUMIN 2.5 g/dl (3.4-5.0); CALCIUM 8.8 mg/dL (8.5-10.1)
[2021-01-02 13:11] LABS: CREATININE 1.4 mg/dL (0.55-1.3)
[2021-01-02 13:12] LABS: BILIRUBIN,TOTAL 0.4 mg/dL (0.2-1)
[2021-01-02 13:13] LABS: TOT PROT 5.9 g/dl (6.4-8.2)
== END 2021-01-02 11:37 | disposition home or self-care (01) | DRG 774 ==
LOC: YASAS 09:06 → Y3N 14:43
PROVIDERS: ADMIT Allergy & Immunology; ATTEND Allergy & Immunology
PROC: HZ2ZZZZ Detoxification Services for Substance Abuse Treatment (ICD-10-PCS; principal; 2020-12-29)
DX: F10.230 Alcohol dependence with withdrawal, uncomplicated (principal); F14.20 Cocaine dependence, uncomplicated; F17.210 Nicotine dependence, cigarettes, uncomplicated; F19.24 Other psychoactive substance dependence with psychoactive substance-induced mood disorder; F19.280 Other psychoactive substance dependence with psychoactive substance-induced anxiety disorder; F19.282 Other psychoactive substance dependence with psychoactive substance-induced sleep disorder; F39 Unspecified mood [affective] disorder; I10 Essential (primary) hypertension; K21.9 Gastro-esophageal reflux disease without esophagitis; D64.9 Anemia, unspecified; N40.0 Benign prostatic hyperplasia without lower urinary tract symptoms; H40.9 Unspecified glaucoma; G47.00 Insomnia, unspecified; G40.909 Epilepsy, unspecified, not intractable, without status epilepticus; R26.2 Difficulty in walking, not elsewhere classified; Z99.89 Dependence on other enabling machines and devices; Z90.5 Acquired absence of kidney; Z91.14 Patient's other noncompliance with medication regimen; Z91.19 Patient's noncompliance with other medical treatment and regimen; Z56.0 Unemployment, unspecified; Z59.01 Sheltered homelessness
CPT/HCPCS: 36415; 80053; 85027; 86780; C9803; J0735; U0003; U0005

== ENCOUNTER 2021-05-16 18:04 | Inpatient (IN) | payer OTHER ==
[2021-05-16 20:10] VITALS: BMI 19.7
[2021-05-16] MEDS ORDERED: ONDANSETRON *ODT* 4 MG TABLET SL PRN (21:05)
[2021-05-16] MEDS ORDERED: ACETAMINOPHEN 325 MG TABLET (FP) PO PRN (21:05)
[2021-05-16] MEDS ORDERED: NICOTINE POLACRILEX 2 MG GUM BUC PRN (21:05)
[2021-05-16] MEDS ORDERED: LOPERAMIDE HCL 2 MG CAPSULE PO PRN (21:05)
[2021-05-16] MEDS ORDERED: MENTHOL/PHENOL 1 EACH UD MM PRN (21:05)
[2021-05-16] MEDS ORDERED: BISMUTH SUBSALICYLATE 524 MG/30 ML PO PRN (21:05)
[2021-05-16] MEDS ORDERED: MAGNESIUM HYDROX 2400MG/30ML ORAL SUSPENSION 30 ML CUP PO PRN (21:05)
[2021-05-16] MEDS ORDERED: MAGNESIUM CITRATE 300 ML BOTTLE PO PRN (21:05)
[2021-05-16] MEDS ORDERED: chlordiazePOXIDE HCL 25 MG CAPSULE PO PRN (21:05)
[2021-05-17] MEDS ORDERED: chlordiazePOXIDE HCL 25 MG CAPSULE ONE (02:13)
[2021-05-17] MEDS ORDERED: ACETAMINOPHEN 325 MG TABLET (FP) ONE (02:13)
[2021-05-17] MEDS: chlordiazePOXIDE HCL 25 MG CAPSULE PO SCH ×5 (02:18→23:09)
[2021-05-17] MEDS: MELATONIN 5 MG TABLETS PO SCH ×2 (02:18→23:08)
[2021-05-17] MEDS: THIAMINE HCL 100 MG TABLET (FP) PO SCH ×2 (02:18→23:08)
[2021-05-17] MEDS: ACETAMINOPHEN 325 MG TABLET (FP) PO PRN ×2 (02:20→11:00)
[2021-05-17] MEDS: TAMSULOSIN HCL 0.4 MG CAP PO SCH (08:59)
[2021-05-17] MEDS: PRENATAL VITAMINS W/ FOLIC ACID TABLET (FP) PO SCH (10:58)
[2021-05-17] MEDS: LISINOPRIL 10 MG TABLET PO SCH (10:59)
[2021-05-17] MEDS: levETIRAcetam 500 MG TABLET (FP) PO SCH ×2 (10:59→23:08)
[2021-05-17] MEDS: amLODIPine BESYLATE 10 MG TABLET (FP) PO SCH (10:59)
[2021-05-17] MEDS: PANTOPRAZOLE 20 MG TABLET PO SCH (11:00)
[2021-05-17] MEDS: NICOTINE 14 MG/24 HOURS TOPICAL PATCH TD SCH (11:00)
[2021-05-17 11:20] LABS: HEMATOCRIT 24.9 % (35.4-49); HEMOGLOBIN 8.1 GM/dL (11.7-16.9); MCH 31.8 pg (25.7-33.7); MCHC 32.4 g/dl (32.0-35.9); MEAN PLT VOLUME 6.2 fl (7.5-11.1); PLATELET COUNT 261 10^3/uL (134-434); RBC 2.54 M/mm3 (4.00-5.60); RDW 16.1 % (11.9-15.9); WHITE BLOOD COUNT 3.9 K/mm3 (4.0-10.0)
[2021-05-17 11:34] LABS: ALBUMIN 2.9 g/dl (3.4-5.0); CALCIUM 8.8 mg/dL (8.5-10.1)
[2021-05-17 11:38] LABS: CREATININE 1.6 mg/dL (0.55-1.3)
[2021-05-17 11:39] LABS: BILIRUBIN,TOTAL 0.5 mg/dL (0.2-1); TOT PROT 6.6 g/dl (6.4-8.2)
[2021-05-17] MEDS: FERROUS SO4 325 MG TABLET (FP) PO SCH (18:26)
[2021-05-17] MEDS: MAG HYDROX/AL HYDROX/SIMETH 30 ML UNIT-DOSE CUP PO PRN (18:26)
[2021-05-17] MEDS: IBUPROFEN 400 MG TABLET (FP) PO PRN (23:10)
[2021-05-18] MEDS: chlordiazePOXIDE HCL 25 MG CAPSULE PO SCH ×4 (05:25→22:05)
[2021-05-18] MEDS: METHOCARBAMOL 500 MG TABLET PO PRN ×2 (05:27→22:03)
[2021-05-18] MEDS: FERROUS SO4 325 MG TABLET (FP) PO SCH ×3 (07:01→18:03)
[2021-05-18] MEDS: TAMSULOSIN HCL 0.4 MG CAP PO SCH (07:31)
[2021-05-18] MEDS: NICOTINE 14 MG/24 HOURS TOPICAL PATCH TD SCH (10:35)
[2021-05-18] MEDS: PANTOPRAZOLE 20 MG TABLET PO SCH (10:35)
[2021-05-18] MEDS: PRENATAL VITAMINS W/ FOLIC ACID TABLET (FP) PO SCH (10:35)
[2021-05-18] MEDS: LISINOPRIL 10 MG TABLET PO SCH (10:37)
[2021-05-18] MEDS: amLODIPine BESYLATE 10 MG TABLET (FP) PO SCH (10:37)
[2021-05-18] MEDS: levETIRAcetam 500 MG TABLET (FP) PO SCH ×2 (10:37→22:03)
[2021-05-18 13:01] LABS: BLOOD UREA NITROGEN 36.8 mg/dL (7-18); CALCIUM 8.6 mg/dL (8.5-10.1)
[2021-05-18 13:04] LABS: CREATININE 1.7 mg/dL (0.55-1.3); HEMATOCRIT 24.3 % (35.4-49); HEMOGLOBIN 8.2 GM/dL (11.7-16.9); MCH 32.7 pg (25.7-33.7); MCHC 33.7 g/dl (32.0-35.9); MEAN CELL VOLUME 97.1 fl (80-96); MEAN PLT VOLUME 6.3 fl (7.5-11.1); PLATELET COUNT 263 10^3/uL (134-434); RDW 16.4 % (11.9-15.9); RETICULOCYTES 1.74 % (0.5-1.5); WHITE BLOOD COUNT 2.8 K/mm3 (4.0-10.0)
[2021-05-18] MEDS: THIAMINE HCL 100 MG TABLET (FP) PO SCH (22:04)
[2021-05-18] MEDS: IBUPROFEN 400 MG TABLET (FP) PO PRN (22:04)
[2021-05-18] MEDS: MELATONIN 5 MG TABLETS PO SCH (22:05)
[2021-05-19] MEDS ORDERED: chlordiazePOXIDE HCL 10 MG CAPSULE PO PRN
[2021-05-19] MEDS: chlordiazePOXIDE HCL 10 MG CAPSULE PO SCH ×4 (05:35→22:10)
[2021-05-19] MEDS: METHOCARBAMOL 500 MG TABLET PO PRN ×2 (05:36→22:10)
[2021-05-19] MEDS: FERROUS SO4 325 MG TABLET (FP) PO SCH ×3 (07:28→18:40)
[2021-05-19] MEDS: TAMSULOSIN HCL 0.4 MG CAP PO SCH (12:30)
[2021-05-19] MEDS: NICOTINE 14 MG/24 HOURS TOPICAL PATCH TD SCH (12:30)
[2021-05-19] MEDS: LISINOPRIL 10 MG TABLET PO SCH (12:30)
[2021-05-19] MEDS: PRENATAL VITAMINS W/ FOLIC ACID TABLET (FP) PO SCH (12:30)
[2021-05-19] MEDS: amLODIPine BESYLATE 10 MG TABLET (FP) PO SCH (12:30)
[2021-05-19] MEDS: levETIRAcetam 500 MG TABLET (FP) PO SCH ×2 (12:30→22:10)
[2021-05-19] MEDS: PANTOPRAZOLE 20 MG TABLET PO SCH (13:26)
[2021-05-19 14:11] LABS: SARS-CoV-2 NAA Not Detected (Not Detected)
[2021-05-19] MEDS: ACETAMINOPHEN 325 MG TABLET (FP) PO PRN (18:41)
[2021-05-19] MEDS: MAG HYDROX/AL HYDROX/SIMETH 30 ML UNIT-DOSE CUP PO PRN (18:43)
[2021-05-19] MEDS: THIAMINE HCL 100 MG TABLET (FP) PO SCH (22:10)
[2021-05-19] MEDS: MELATONIN 5 MG TABLETS PO SCH (22:10)
[2021-05-20] MEDS: chlordiazePOXIDE HCL 10 MG CAPSULE PO SCH ×2 (05:21→18:40)
[2021-05-20] MEDS: METHOCARBAMOL 500 MG TABLET PO PRN ×2 (05:21→18:43)
[2021-05-20] MEDS: FERROUS SO4 325 MG TABLET (FP) PO SCH ×3 (07:36→18:40)
[2021-05-20] MEDS: TAMSULOSIN HCL 0.4 MG CAP PO SCH (10:41)
[2021-05-20] MEDS: levETIRAcetam 500 MG TABLET (FP) PO SCH ×2 (10:41→22:13)
[2021-05-20] MEDS: LISINOPRIL 10 MG TABLET PO SCH (10:41)
[2021-05-20] MEDS: PANTOPRAZOLE 20 MG TABLET PO SCH (10:41)
[2021-05-20] MEDS: PRENATAL VITAMINS W/ FOLIC ACID TABLET (FP) PO SCH (10:41)
[2021-05-20] MEDS: NICOTINE 14 MG/24 HOURS TOPICAL PATCH TD SCH (10:41)
[2021-05-20] MEDS: amLODIPine BESYLATE 10 MG TABLET (FP) PO SCH (10:41)
[2021-05-20] MEDS: ACETAMINOPHEN 325 MG TABLET (FP) PO PRN (10:42)
[2021-05-20] MEDS: MELATONIN 5 MG TABLETS PO SCH (22:12)
[2021-05-20] MEDS: THIAMINE HCL 100 MG TABLET (FP) PO SCH (22:13)
[2021-05-20] MEDS: IBUPROFEN 400 MG TABLET (FP) PO PRN (22:13)
[2021-05-21] MEDS ORDERED: chlordiazePOXIDE HCL 10 MG CAPSULE PO ONE (05:00)
[2021-05-21 06:18] VITALS: TEMP 97.7
[2021-05-21] MEDS: FERROUS SO4 325 MG TABLET (FP) PO SCH (07:07)
[2021-05-21 09:24] VITALS: BP 124/75; PULSE 75
== END 2021-05-21 10:13 | disposition home or self-care (01) | DRG 774 ==
LOC: YASAS 18:04 → Y3N 05-17 01:21
PROVIDERS: ADMIT Allergy & Immunology; ATTEND Allergy & Immunology
PROC: HZ2ZZZZ Detoxification Services for Substance Abuse Treatment (ICD-10-PCS; principal; 2021-05-17)
DX: F10.230 Alcohol dependence with withdrawal, uncomplicated (principal); F14.20 Cocaine dependence, uncomplicated; F17.210 Nicotine dependence, cigarettes, uncomplicated; F31.9 Bipolar disorder, unspecified; F19.24 Other psychoactive substance dependence with psychoactive substance-induced mood disorder; D64.9 Anemia, unspecified; G40.909 Epilepsy, unspecified, not intractable, without status epilepticus; I10 Essential (primary) hypertension; K21.9 Gastro-esophageal reflux disease without esophagitis; N40.0 Benign prostatic hyperplasia without lower urinary tract symptoms; R79.89 Other specified abnormal findings of blood chemistry; Z86.11 Personal history of tuberculosis; Z90.5 Acquired absence of kidney; Z56.0 Unemployment, unspecified; Z59.01 Sheltered homelessness
CPT/HCPCS: 36415; 80048; 80053; 82607; 82746; 83540; 83550; 85027; 85045; 86780; C9803; U0003; U0005